=== PATIENT | female | born 1960 | race Caucasian/White ===

== ENCOUNTER 2016-06-05 12:04 | Emergency (ER) | payer OTHER ==
[2016-06-05 12:21] VITALS: BP 125/81; PULSE 78; O2SAT 97
[2016-06-05] MEDS ORDERED: Tylenol #3 Tablet PO ONE (12:34)
[2016-06-05] MEDS ORDERED: Tylenol #3 Tablet ONE (12:38)
--- NOTE | 2016-06-05 12:54 | ERPHSYRPT ---
- History of Present Illness Time Seen by Provider: 06/05/16 12:25 Source: patient Exam Limitations: clinical condition Patient Subjective Stated Complaint: PT STATES THAT SHE FELL TODAY COMPLAINS OF LEFT FOOT. AND ANKLE PAIN STATES SHE HAS INJURED THAT FOOT IN THE PAST STATES SHE CAN'T MOVE HER TOES AT ALL. Triage Nursing Assessment: pt alert warm and dry resp easy non labored good pulses noted to extremity no swelling or brusing noted. Method of Injury: direct blow, fell Occurred: just prior to arrival Quality: constant Severity of Pain-Max: moderate Severity of Pain-Current: moderate Lower Extremities Pain: foot: left, ankle: left Modifying Factors: Improves With: movement Associated Symptoms: unable to bear weight Allergies/Adverse Reactions: bacitracin [From Neosporin ([id number])] Allergy (Verified 03/07/15 11:37) bacitracin zinc [From Neosporin ([id number]-[id number])] Allergy (Verified 03/07/15 11: 37) neomycin sulfate [From Neosporin ([id number])] Allergy (Verified 03/07/15 11: 37) polymyxin B [From Neosporin ([id number])] Allergy (Verified 03/07/15 11:37) povidone-iodine [From Betadine] Allergy (Verified 06/05/16 12:17) soap [From Betadine] Allergy (Verified 06/05/16 12:17) Home Medications: Bupropion HCl 150 mg Sr [Wellbutrin SR 150 MG] 150 mg PO BID 12/13/15 [ History] Trazodone HCl 50 mg [Desyrel 50 mg] 1 tab PO DAILY 01/18/16 [History] Hx Tetanus, Diphtheria Vaccination/Date Given: Yes Hx Influenza Vaccination/Date Given: No Hx Pneumococcal Vaccination/Date Given: No Immunizations Up to Date: Yes - Review of Systems Constitutional: No Fever, No Chills Eyes: No Symptoms Ears, Nose, & Throat: No Symptoms Respiratory: No Cough, No Dyspnea Cardiac: No Chest Pain, No Edema, No Syncope Abdominal/Gastrointestinal: No Abdominal Pain, No Nausea, No Vomiting, No Diarrhea Genitourinary Symptoms: No Dysuria Musculoskeletal: Injury, Joint Pain, Joint Swelling, No Back Pain, No Neck Pain Skin: No Rash Neurological: No Dizziness, No Focal Weakness, No Sensory Changes Psychological: No Symptoms Endocrine: No Symptoms All Other Systems: Reviewed and Negative - Past Medical History Pertinent Past Medical History: Yes Neurological History: Peripheral Neuropathy Psycho-Social History: Depression - Past Surgical History Past Surgical History: Yes Musculoskeletal: Orthopedic Surgery Female Surgical History: Section Other Surgical History: LEFT FOOT-TARSAL TUNNEL - Social History Smoking Status: Former smoker Exposure to second hand smoke: Yes Drug Use: none Patient Lives Alone: No - Female History Hx Last Menstrual Period: MENOPAUSE - Nursing Vital Signs Nursing Vital Signs: Initial Vital Signs Temperature 98.6 F Temperature Source Oral Pulse Rate 78 Respiratory Rate 18 Blood Pressure [] 125/81 - Physical Exam General Appearance: no apparent distress Ankle Exam: left ankle: limited range of motion, pain, soft tissue tenderness ( ANTERIOR MEDIAL TO LATERAL MALLEOLUS, NO JOINT LAXITY, THE PEDIS PULSE 2+), swelling Foot Exam: left foot: soft tissue tenderness (TENDERNESS MID TO DISTAL 2ND TO 4TH METATARSALS WITHOUT SWELLING, ECCHYMOSIS OR CREPITUS), swelling DTR - Lower Extremities Exam: knee (R): 2+, knee (L): 2+, ankle (R): 2+, ankle ( L): 2+ Neuro/Tendon Exam: normal sensation Mental Status Exam: alert, oriented x 3 SpO2 Interpretation: normal SpO2: 97 Oxygen Delivery: Room Air - Radiology Exams Foot X-ray Interpretation: Discussed w/ radiologist (NO EVIDENCE OF FRACTURE OF DISLOCATION.) Ordered Tests: Active Orders 24 hr Category Date Time Status Crutches STAT Care 06/05/16 12:34 Active Splint STAT Care 06/05/16 13:28 Ordered ANKLE (3 VIEWS) Stat Exams 06/05/16 12:54 Completed FOOT (MINIMUM 3 VIEWS) Stat Exams 06/05/16 12:55 Taken Medication Summary Discontinued Medications Generic Name Dose Route Start Last Admin Trade Name Freq PRN Reason Stop Dose Admin Acetaminophen/Codeine Phosphate 2 tab 06/05/16 12:34 06/05/16 12:38 Tylenol #3 Tablet PO 06/05/16 12:35 2 tab STAT ONE Administration Acetaminophen/Codeine Phosphate Confirm 06/05/16 12:38 Tylenol #3 Tablet Administered 06/05/16 12:39 Dose 2 tab .ROUTE .STK-MED ONE - Progress Progress Note: 06/05/16 13:28 PATIENT GIVEN TYLENOL #3, 2 TABLETS ORALLY, VELCRO LEFT ANKLE SPLINT FIITTED FOR LEFT ANKLE. CRUTCHES FITTED FOR PATIENT. Will see patient in: other Counseled pt/family regarding: diagnosis, rad results - Departure Time of Disposition: 13:45 Departure Disposition: Home Clinical Impression: CONTUSION/STRAIN LEFT FOOT AND ANKLE Condition: Stable Critical Care Time: No Additional Instructions: AMBULATE USING CRUTCHES NONWEIGHT BEARING LEFT FOOT FOR 5 DAYS. APPLY ICE OVER FOOT AND ANKLE SWELLING EVERY 4 HOURS, 30 MINUTES FOR 48 HOURS. TYLENOL #3 EVERY 4 HOURS FOR PAIN NEEDED. CONSULT YOUR FAMILY PHYSICIAN FOR FOLLOWUP. Prescriptions: Codeine Phosphate/APAP #3 [Tylenol #3 Tablet] 1 tab PO Q4H PRN PRN #10 tablet PRN Reason: Pain
--- NOTE | 2016-06-05 13:26 | XRAY ---
Exam: 3 view left ankle series from 06/05/2016. Comparison none. Indication: Patient fell today, twisting foot and ankle, complains of pain within lateral aspect of left foot and ankle. Findings: AP, internal oblique, and lateral images of the left ankle were obtained. I see no acute fracture or dislocation. The lateral compartment of the left ankle mortise may be slightly wider than the medial compartment on the AP image, but not to a significant degree. I do not appreciate any significant soft tissue swelling. No anterior left ankle joint effusion is seen. Impression: 1. No acute fracture or dislocation of the left ankle is seen.
--- NOTE | 2016-06-05 13:36 | XRAY ---
Exam: 3 views of the left foot from 06/05/2016. Comparison: 3 views of the left foot from 08/07/2011. Indication: Patient fell today twisting left foot and ankle, complains of pain along lateral aspect of left foot and left ankle. Findings: AP, oblique, and lateral images of the left foot were obtained. There appear to be a couple subtle calcifications adjacent to a bone defect within the proximal dorsal margin of the tarsal navicular bone on the lateral radiograph. Overlying soft tissue swelling is seen dorsal to this. This appearance is most suggestive of minimally displaced cortical avulsion fracture injuries which appear to be acute. I see no other acute fracture or dislocation of the left foot. Impression: 1. A couple minimally displaced cortical avulsion fracture injuries are seen arising from the proximal dorsal margin of the tarsal navicular bone. These are only seen in the lateral image. Some overlying soft tissue swelling is seen as well. 2. No other fracture or dislocation of the left foot is seen.
== END 2016-06-05 14:17 | disposition home or self-care (01) ==
LOC: ED 12:04
DX: S90.32XA Contusion of left foot, initial encounter (principal); S93.402A Sprain of unspecified ligament of left ankle, initial encounter; W01.0XXA Fall on same level from slipping, tripping and stumbling without subsequent striking against object, initial encounter; Z79.899 Other long term (current) drug therapy
CPT/HCPCS: 73610; 73630; 99284; A9270-GY

== ENCOUNTER 2017-04-21 13:02 | Emergency (ER) | payer OTHER ==
[2017-04-21] MEDS ORDERED: TYLENOL 325 MG PO STA (13:27)
--- NOTE | 2017-04-21 13:34 | ERPHSYRPT ---
- History of Present Illness Time Seen by Provider: 04/21/17 13:21 Source: patient, family Patient Subjective Stated Complaint: Pt states "I think I have the flu. I have felt horrible for the past 4 days. I have not been able to control my bladder. " Triage Nursing Assessment: Pt alert and oriented X 3, skin pwd. PT ambulates hunched over, moaning. Pt breathing fast, incontinent of urine. Physician History: CC: flu Hx: 57 y/o patient of Dr Allan Alfred and Dr Osei Arvizu- psychiatry. She has hx of recent swelling, abd bloating. Has not seen her doctor to discuss. Now has 4 day hx of flu symptoms with fever, chills, myalgias, cough, aches. No headache. She has some red spots for a few days on her legs. Swelling worse in right leg when she wears socks but goes down with socks off. No hx of heart, kidney disease nor DM. Severity: moderate Allergies/Adverse Reactions: bacitracin [From Neosporin ([id number])] Allergy (Verified 03/07/15 11:37) bacitracin zinc [From Neosporin ([id number]-[id number])] Allergy (Verified 03/07/15 11: 37) neomycin sulfate [From Neosporin ([id number]-efh-[id number])] Allergy (Verified 03/07/15 11: 37) polymyxin B [From Neosporin ([id number]-xej-egnfs)] Allergy (Verified 03/07/15 11:37) povidone-iodine [From Betadine] Allergy (Verified 06/05/16 12:17) soap [From Betadine] Allergy (Verified 06/05/16 12:17) Home Medications: Bupropion HCl 150 mg Sr [Wellbutrin SR 150 MG] 450 mg PO BID 12/13/15 [ History] Trazodone HCl 50 mg [Desyrel 50 mg] 2 tab PO HS 01/18/16 [History] Alendronate Sodium [Fosamax] 10 mg PO WEEKLY 04/21/17 [History] Alprazolam [Xanax 0.5 mg] 0.5 mg PO DAILY 04/21/17 [History] Gabapentin 300 mg PO HS 04/21/17 [History] Mesalamine [Pentasa] 250 mg PO TID 04/21/17 [History] Hx Tetanus, Diphtheria Vaccination/Date Given: Yes Hx Influenza Vaccination/Date Given: Yes Hx Pneumococcal Vaccination/Date Given: No Immunizations Up to Date: Yes - Review of Systems Constitutional: Fever, Chills, Fatigue, Malaise, Weakness Eyes: No Symptoms Ears, Nose, & Throat: Nose Congestion Respiratory: Cough Cardiac: No Chest Pain Abdominal/Gastrointestinal: Nausea, Diarrhea (at first, now resolved), No Abdominal Pain Genitourinary Symptoms: No Dysuria Musculoskeletal: Myalgias Skin: Rash (red spots on leg) Neurological: No Headache All Other Systems: Reviewed and Negative - Past Medical History Pertinent Past Medical History: Yes Neurological History: Peripheral Neuropathy Psycho-Social History: Depression Other Medical History: ALLERGIES - Past Surgical History Past Surgical History: Yes Musculoskeletal: Orthopedic Surgery Female Surgical History: Section Other Surgical History: LEFT FOOT-TARSAL TUNNEL - Social History Smoking Status: Former smoker Exposure to second hand smoke: Yes Drug Use: none Patient Lives Alone: No - Female History Hx Last Menstrual Period: no more Hx Now: No - Nursing Vital Signs Nursing Vital Signs: Initial Vital Signs Temperature 102.7 F 04/21/17 13:17 Pulse Rate 104 H 04/21/17 13:17 Respiratory Rate 22 04/21/17 13:17 Blood Pressure 141/92 04/21/17 13:17 O2 Sat by Pulse Oximetry 96 04/21/17 13:17 Pain Scale Pain Intensity 4 - Physical Exam General Appearance: alert Eye Exam: PERRL/EOMI Ears, Nose, Throat Exam: normal ENT inspection, dry mucous membranes Neck Exam: normal inspection, non-tender, supple Respiratory Exam: crackles/rales (scattered), No respiratory distress Cardiovascular Exam: regular rate/rhythm, No murmur Gastrointestinal/Abdomen Exam: soft, distention (some bloating), No tenderness Back Exam: normal inspection, No CVA tenderness Extremity Exam: pedal edema (both sides, no calf tenderness, some red spots on legs are macular patches consistent with vasculitis) Neurologic Exam: alert, oriented x 3, cooperative, sensation nml, No motor deficits Skin Exam: warm, dry SpO2 Interpretation: normal SpO2: 96 Oxygen Delivery: Room Air - Course Nursing assessment & vital signs reviewed: Yes EKG Interpreted by Me: RATE (101), Sinus Tach, NORMAL AXIS, NORMAL INTERVALS ( QTc 470), NORMAL QRS, NORMAL ST-T - Radiology Exams cxr X-ray Interpretation: Teleradiologist Report (stable nonacute hyperinflated chest) Ordered Tests: Active Orders 24 hr Category Date Time Status Quarantine Officer STAT Care 04/21/17 13:27 Active Cath for Specimen-Straight STAT Care 04/21/17 13:27 Active EKG-ER Only STAT Care 04/21/17 13:27 Active IV Insertion STAT Care 04/21/17 13:27 Active Oxygen-ED Only NASAL CANNULA 2 lpm Care 04/21/17 14:34 Active Pulse Oximetry (ED) STAT Care 04/21/17 13:27 Active CHEST 1 VIEW (PORTABLE) Stat Exams 04/21/17 13:27 Completed BLOOD CULTURE Stat Lab 04/21/17 13:27 Ordered CBC W DIFF Stat Lab 04/21/17 13:27 Completed CMP Stat Lab 04/21/17 14:07 Completed Lactic Acid Stat Lab 04/21/17 14:10 Completed Lactic Acid Stat Lab 04/21/17 16:15 Completed NT PRO BNP Stat Lab 04/21/17 14:07 Completed TROPONIN Stat Lab 04/21/17 14:07 Completed UA W/ MICROSCOPIC Stat Lab 04/21/17 15:47 Completed Respiratory Nebulizer STAT RT 04/21/17 14:34 Completed Medication Summary Discontinued Medications Generic Name Dose Route Start Last Admin Trade Name Freq PRN Reason Stop Dose Admin Acetaminophen 975 mg 04/21/17 13:27 04/21/17 13:38 Tylenol 325 Mg PO 04/21/17 13:28 975 mg STAT STA Administration Acetaminophen Confirm 04/21/17 13:37 Tylenol 325 Mg Administered 04/21/17 13:38 Dose 975 mg .ROUTE .STK-MED ONE Albuterol/Ipratropium Confirm 04/21/17 14:28 Duoneb 0.5-3 Mg/3 Ml Neb Administered 04/21/17 14:29 Dose 3 ml IH .STK-MED ONE Albuterol/Ipratropium 3 ml 04/21/17 14:34 04/21/17 14:35 Duoneb 0.5-3 Mg/3 Ml Neb IH 04/21/17 14:35 3 ml STAT ONE Administration Lab/Rad Data: Laboratory Result Diagrams 04/21/17 13:27 04/21/17 14:07 Laboratory Results 04/21/17 04/21/17 04/21/17 Range/Units 16:15 15:47 14:10 WBC (4.0-10.5) K/mm3 RBC (4.1-5.4) M/mm3 Hgb (12.0-16.0) gm/dl Hct (35-47) % MCV (78-100) fl MCH (26-32) pg MCHC (32-36) g/dl RDW (11.5-14.0) % Plt Count (150-450) K/mm3 MPV (6-9.5) fl Gran % (36.0-66.0) % Lymphocytes % (24.0-44.0) % Monocytes % (0.0-12.0) % Eosinophils % (0.00-5.0) % Basophils % (0.0-0.4) % Basophils # (0-0.4) Sodium (137-145) mmol/L Potassium (3.5-5.1) mmol/L Chloride (98-107) mEq/L Carbon Dioxide (22-30) mmol/L Anion Gap MEQ/L BUN (7-17) mg/dL Creatinine (0.52-1.04) mg/dl Estimated GFR ML/MIN Glucose (74-106) mg/dL Lactic Acid 1.7 2.1 H (0.4-2.0) Calcium (8.4-10.2) mg/dL Total Bilirubin (0.2-1.3) mg/dL AST (14-36) U/L ALT (0-35) U/L Alkaline Phosphatase (38-126) U/L Troponin I (0.000-0.034) ng/mL NT-Pro-B Natriuret Pep (0-900) pg/mL Serum Total Protein (6.3-8.2) mg/dL Albumin (3.5-5.0) g/dL Ur Collection Type CCMS Urine Color LT.YELLOW (YELLOW) Urine Appearance CLEAR (CLEAR) Urine pH 8.0 (5-6) Ur Specific [place] 1.005 (1.005-1.025) Urine Protein NEGATIVE (Negative) Urine Ketones NEGATIVE (NEGATIVE) Urine Blood TRACE NON-HEM (0-5) Michael/ul Urine Nitrite NEGATIVE (NEGATIVE) Urine Bilirubin NEGATIVE (NEGATIVE) Urine Urobilinogen NORMAL (0-1) mg/dL Ur Leukocyte Esterase NEGATIVE (NEGATIVE) Urine Microscopic RBC 0-2 (0-2) /HPF Urine Culture Reflexed NO (NO) Urine Glucose NEGATIVE (NEGATIVE) mg/dL Influenza Type A Ag (NEGATIVE) Influenza Type B Ag (NEGATIVE) RSV (PCR) (Negative) Specimen Received 04-21-17 1630 04/21/17 04/21/17 04/21/17 Range/Units 14:07 14:07 13:27 WBC 7.6 (4.0-10.5) K/mm3 RBC 4.42 (4.1-5.4) M/mm3 Hgb 13.7 (12.0-16.0) gm/dl Hct 42.0 (35-47) % MCV 95.0 (78-100) fl MCH 31.0 (26-32) pg MCHC 32.6 (32-36) g/dl RDW 13.1 (11.5-14.0) % Plt Count 219 (150-450) K/mm3 MPV 10.5 H (6-9.5) fl Gran % 76.3 H (36.0-66.0) % Lymphocytes % 13.6 L (24.0-44.0) % Monocytes % 8.6 (0.0-12.0) % Eosinophils % 1.2 (0.00-5.0) % Basophils % 0.3 (0.0-0.4) % Basophils # 0.02 (0-0.4) Sodium 141 (137-145) mmol/L Potassium 3.7 (3.5-5.1) mmol/L Chloride 102 (98-107) mEq/L Carbon Dioxide 27 (22-30) mmol/L Anion Gap 15.9 MEQ/L BUN 11 (7-17) mg/dL Creatinine 0.73 (0.52-1.04) mg/dl Estimated GFR > 60 ML/MIN Glucose 108 H (74-106) mg/dL Lactic Acid (0.4-2.0) Calcium 9.6 (8.4-10.2) mg/dL Total Bilirubin 0.60 (0.2-1.3) mg/dL AST 33 (14-36) U/L ALT 29 (0-35) U/L Alkaline Phosphatase 78 (38-126) U/L Troponin I < 0.012 (0.000-0.034) ng/mL NT-Pro-B Natriuret Pep 100 (0-900) pg/mL Serum Total Protein 7.7 (6.3-8.2) mg/dL Albumin 4.5 (3.5-5.0) g/dL Ur Collection Type Urine Color (YELLOW) Urine Appearance (CLEAR) Urine pH (5-6) Ur Specific [place] (1.005-1.025) Urine Protein (Negative) Urine Ketones (NEGATIVE) Urine Blood (0-5) Michael/ul Urine Nitrite (NEGATIVE) Urine Bilirubin (NEGATIVE) Urine Urobilinogen (0-1) mg/dL Ur Leukocyte Esterase (NEGATIVE) Urine Microscopic RBC (0-2) /HPF Urine Culture Reflexed (NO) Urine Glucose (NEGATIVE) mg/dL Influenza Type A Ag NEGATIVE (NEGATIVE) Influenza Type B Ag NEGATIVE (NEGATIVE) RSV (PCR) POSITIVE (Negative) Specimen Received - Progress Progress Note: 04/21/17 17:13 She is feeling better. Fever better. RSV positive and she has flu like syndrome. Will release with cough instr. Advised follow up with Dr Alfred regarding her weight gain and issues with bloating. Counseled pt/family regarding: lab results, diagnosis, need for follow-up, rad results - Departure Time of Disposition: 17:13 Departure Disposition: Home Clinical Impression: Influenza-like syndrome, Cough Condition: Fair Critical Care Time: No Referrals: LUZ ALFRED [Primary Care Provider] - Instructions: Fever, Adult (DC), Cough, Adult (DC), Flu, Adult (DC) Additional Instructions: Rx albuterol MDI. Tylenol every 4-6 hours for fever/discomfort. Drink plenty of fluids. Follow up with Dr Allan Alfred. Prescriptions: Albuterol Sulfate [Albuterol Sulfate Hfa] 2 puff IH Q4-6HPRN PRN #1 [email or web address] PRN Reason: cough or wheeze
[2017-04-21] MEDS ORDERED: TYLENOL 325 MG ONE (13:37)
[2017-04-21 13:49] LABS: BASOPHIL % 0.3 % (0.0-0.4); Basophil (Absolute #) 0.02 (0-0.4); Eosinophil % 1.2 % (0.00-5.0); Eosinophil (Absolute #) 0.09 (0-0.5); Granulocyte Absolute (ANC) 5.79 (1.4-6.9); Granulocytes % 76.3 % (36.0-66.0); Hemoglobin 13.7 gm/dl (12.0-16.0); Lymphocyte (Absolute #) 1.03 (1.0-4.6); Lymphocytes % 13.6 % (24.0-44.0); Mean Corpuscular Hgb Concent. 32.6 g/dl (32-36); Mean Platelet Volume 10.5 fl (6-9.5); Monocyte (Absolute #) 0.65 (0.0-1.3); Monocytes % 8.6 % (0.0-12.0); Platelet Count 219 K/mm3 (150-450); Red Blood Count 4.42 M/mm3 (4.1-5.4); Red Cell Distribution Width 13.1 % (11.5-14.0); White Blood Count 7.6 K/mm3 (4.0-10.5)
[2017-04-21 14:15] LABS: Lactic Acid 2.1 (0.4-2.0)
--- NOTE | 2017-04-21 14:17 | XRAY ---
Indication: Cough and fever. Flu. Comparison: March 07, 2015. Portable chest remains hyperinflated and clear. Heart and mediastinal structures within normal limits. Bony thorax intact. Impression: Stable nonacute hyperinflated chest.
[2017-04-21] MEDS ORDERED: DUONEB 0.5-3 MG/3 ml Neb IH ONE ×2 (14:28→14:34)
[2017-04-21 15:04] LABS: INFLUENZA A NEGATIVE (NEGATIVE); INFLUENZA B NEGATIVE (NEGATIVE)
[2017-04-21 15:05] LABS: RESPIRATORY SYNCTIAL VIRUS POSITIVE (Negative)
[2017-04-21 16:03] LABS: ALBUMIN 4.5 g/dL (3.5-5.0); ALKALINE PHOSPHATASE 78 U/L (38-126); ANION GAP 15.9 MEQ/L; BLOOD UREA NITROGEN 11 mg/dL (7-17); CHLORIDE 102 mEq/L (98-107); Calcium 9.6 mg/dL (8.4-10.2); Carbon Dioxide 27 mmol/L (22-30); Creatinine 1 0.73 mg/dl (0.52-1.04); Glucose 108 mg/dL (74-106); Potassium 3.7 mmol/L (3.5-5.1); SGOT/AST 33 U/L (14-36); SGPT/ALT 29 U/L (0-35); SODIUM 141 mmol/L (137-145); Total Protein 7.7 mg/dL (6.3-8.2)
[2017-04-21 16:15] LABS: NT PRO BNP 100 pg/mL (0-900)
[2017-04-21 16:17] LABS: TROPONIN < 0.012 ng/mL (0.000-0.034)
[2017-04-21 17:02] LABS: Appearance CLEAR (CLEAR); Bilirubin NEGATIVE (NEGATIVE); Blood TRACE NON-HEM Ery/ul (0-5); Glucose NEGATIVE (NEGATIVE); Ketones NEGATIVE (NEGATIVE); Leukocyte Esterase NEGATIVE (NEGATIVE); Nitrite NEGATIVE (NEGATIVE); Protein,Urine Dip NEGATIVE (Negative); Specific Gravity 1.005 (1.005-1.025); Urobilinogen NORMAL mg/dL (0-1)
[2017-04-21] MEDS ORDERED: PROVENTIL 2.5 MG/3 ML NEB IH ONE ×2 (17:16→17:19)
[2017-04-21 17:47] VITALS: BP 132/76; PULSE 88
[2017-04-21 17:59] VITALS: O2SAT 94
== END 2017-04-21 17:50 | disposition home or self-care (01) ==
LOC: ED 13:02
DX: J11.1 Influenza due to unidentified influenza virus with other respiratory manifestations (principal); B97.4 Respiratory syncytial virus as the cause of diseases classified elsewhere; R05 Cough
CPT/HCPCS: 36000; 36415; 51702; 71045; 80053; 81000; 83605; 83880; 84484; 85025; 87040; 87631; 93041; 94640; 99285; A9270-GY

== ENCOUNTER 2018-03-15 12:21 | Emergency (ER) | payer OTHER ==
[2018-03-15] MEDS ORDERED: solu-MEDROL 125 MG IV ONE (12:53)
[2018-03-15] MEDS ORDERED: Sodium Chloride 0.9% 1000 ML 1,000 ML IV STA (12:53)
[2018-03-15] MEDS ORDERED: DUONEB 0.5-3 MG/3 ml Neb IH ONE ×2 (12:53→13:09)
[2018-03-15] MEDS ORDERED: ROCEPHIN 2 Gm-D5w 50ML BAG** 2 G/50 ML IVPB IV STA (12:58)
--- NOTE | 2018-03-15 13:08 | ERPHSYRPT ---
- History of Present Illness Time Seen by Provider: 03/15/18 12:45 Patient Subjective Stated Complaint: seen at clinic yesterday for cough and SOB. was given ATB shot and prednisoe shot.. was given oral atb.. ALSO HAS A BAD TOOTH. Triage Nursing Assessment: ALERT AND HYPERVENTILATING ON ARRIVAL.. STATES HURTS IN HER CHEST WITH BREATHING. COUGHING UP YELLOW DENIES FEVER Physician History: PATIENT WITH A HISTORY OF DEPRESSION COMPLAINS OF DIFFICULTY BREATHING, PAINFUL INSPIRATION, AND PRODUCTIVE COUGH FOR 1 WEEK. TREATED IN WALK IN CLINIC 2 DAYS AGO FOR TOOTHACHE, PLACED ON ANTIBIOTIC AMOXICILLIN 875MG TWICE DAILY FOR 10 DAYS. HAS SHORTNESS OF BREATH, DENIES FEVER OR CHILLS, RADIATION OF PAIN TO NECK, JAW OR ARMS. Activities at Onset: none Quality: sharpness, stabbing Location: substernal Chest Pain Radiation: no radiation Severity of Pain-Max: moderate Severity of Pain-Current: moderate Modifying Factors: Improves With: breathing, coughing Associated Symptoms: shortness of breath, cough Prior Chest Pain/Cardiac Workup: no prior chest pain Nitro Today/Relief: no nitro taken today Aspirin Treatment Today: no aspirin today Allergies/Adverse Reactions: bacitracin [From Neosporin ([id number])] Allergy (Verified 03/15/18 12:54) bacitracin zinc [From Neosporin ([id number])] Allergy (Verified 03/15/18 12: 54) neomycin sulfate [From Neosporin ([id number])] Allergy (Verified 03/15/18 12: 54) polymyxin B [From Neosporin ([id number]-[id number])] Allergy (Verified 03/15/18 12:54) povidone-iodine [From Betadine] Allergy (Verified 03/15/18 12:54) soap [From Betadine] Allergy (Verified 03/15/18 12:54) Home Medications: Bupropion HCl 150 mg Sr [Wellbutrin SR 150 MG] 450 mg PO BID 12/13/15 [ History] Trazodone HCl 50 mg [Desyrel 50 mg] 2 tab PO HS 01/18/16 [History] ALPRAZolam [Xanax 0.5 mg] 0.5 mg PO DAILY 04/21/17 [History] Alendronate Sodium [Fosamax] 10 mg PO WEEKLY 04/21/17 [History] Gabapentin 300 mg PO HS 04/21/17 [History] Mesalamine [Pentasa] 250 mg PO TID 04/21/17 [History] Hx Tetanus, Diphtheria Vaccination/Date Given: Yes Hx Influenza Vaccination/Date Given: Yes Hx Pneumococcal Vaccination/Date Given: No - Review of Systems Constitutional: No Symptoms, No Fever, No Chills Eyes: No Symptoms Ears, Nose, & Throat: No Symptoms Respiratory: Dyspnea on Exertion (CHUNG), No Cough, No Dyspnea Cardiac: No Chest Pain, No Edema, No Syncope Abdominal/Gastrointestinal: No Symptoms, No Abdominal Pain, No Nausea, No Vomiting, No Diarrhea Genitourinary Symptoms: No Symptoms, No Dysuria Musculoskeletal: No Symptoms, No Back Pain, No Neck Pain Skin: No Rash Neurological: No Dizziness, No Focal Weakness, No Sensory Changes Psychological: No Symptoms Endocrine: No Symptoms All Other Systems: Reviewed and Negative - Past Medical History Pertinent Past Medical History: Yes Neurological History: Peripheral Neuropathy Psycho-Social History: Depression Other Medical History: ALLERGIES - Past Surgical History Past Surgical History: Yes Musculoskeletal: Orthopedic Surgery Female Surgical History: Section Other Surgical History: LEFT FOOT-TARSAL TUNNEL - Social History Smoking Status: Former smoker Exposure to second hand smoke: Yes Drug Use: none Patient Lives Alone: No - Female History Hx Now: No - Nursing Vital Signs Nursing Vital Signs: Initial Vital Signs Temperature 98.6 F 03/15/18 12:35 Pulse Rate 84 03/15/18 12:35 Respiratory Rate 30 H 03/15/18 12:35 Blood Pressure 132/78 03/15/18 12:35 O2 Sat by Pulse Oximetry 97 03/15/18 12:35 Pain Scale Pain Intensity 2 - Physical Exam General Appearance: no apparent distress, alert Eye Exam: PERRL/EOMI, eyes nml inspection Ears, Nose, Throat Exam: normal ENT inspection, moist mucous membranes Neck Exam: normal inspection, non-tender, supple, full range of motion Respiratory Exam: diminished breath sounds, wheezing (PROLONGED EXPIRATORY WHEEZES, PARASTERNAL TENDERNESS T-4 TO T-8), No respiratory distress Cardiovascular Exam: regular rate/rhythm, normal heart sounds Gastrointestinal/Abdomen Exam: soft, normal bowel sounds, No tenderness, No mass Back Exam: normal inspection, No CVA tenderness, No vertebral tenderness Extremity Exam: normal inspection, normal range of motion Neurologic Exam: alert, oriented x 3, cooperative, normal mood/affect, sensation nml, No motor deficits Skin Exam: normal color, warm, dry SpO2 Interpretation: normal SpO2: 97 - Course EKG Interpreted by Me: RATE, Sinus Rhythm, NORMAL AXIS - Radiology Exams Chest X-ray Interpretation: Interpreted by me, Negative - CT Exams Chest CT Interpretation: Tele-radiologist Report (NO PULMONARY EMBOLISM, THERE IS PULMONARY EMPHYSEMA) Ordered Tests: Active Orders 24 hr Category Date Time Status Ordained Minister STAT Care 03/15/18 12:54 Active EKG-ER Only STAT Care 03/15/18 12:53 Active IV Insertion STAT Care 03/15/18 12:53 Active CHEST 1 VIEW (PORTABLE) Stat Exams 03/15/18 12:54 Taken CHEST WITH CONTRAST [CT] Stat Exams 03/15/18 13:47 Taken BLOOD CULTURE Stat Lab 03/15/18 13:15 Received BMP Stat Lab 03/15/18 12:53 Completed CBC W DIFF Stat Lab 03/15/18 12:53 Completed D-DIMER QUANTITATION Stat Lab 03/15/18 12:53 Completed Lactic Acid Stat Lab 03/15/18 12:59 Completed MAGNESIUM Stat Lab 03/15/18 12:53 Completed PROTIME WITH INR Stat Lab 03/15/18 12:53 Completed TROPONIN Q3H Lab 03/15/18 13:00 Completed TROPONIN Q3H Lab 03/15/18 16:00 Ordered TROPONIN Q3H Lab 03/15/18 19:00 Ordered TROPONIN Q3H Lab 03/15/18 22:00 Ordered TROPONIN Q3H Lab 03/16/18 01:00 Ordered UA W/RFX UR CULTURE Stat Lab 03/15/18 13:40 Completed Peak Expiratory Flow Rate ONCE RT 03/15/18 12:55 Completed Respiratory Therapy Assessment DAILY RT 03/15/18 13:20 Completed Medication Summary Discontinued Medications Generic Name Dose Route Start Last Admin Trade Name Freq PRN Reason Stop Dose Admin Albuterol/Ipratropium 3 ml 03/15/18 12:53 03/15/18 13:20 Duoneb 0.5-3 Mg/3 Ml Neb IH 03/15/18 12:54 3 ml STAT ONE Administration Albuterol/Ipratropium Confirm 03/15/18 13:09 Duoneb 0.5-3 Mg/3 Ml Neb Administered 03/15/18 13:10 Dose 3 ml IH .STK-MED ONE Sodium Chloride 1,000 mls @ 999 mls/hr 03/15/18 12:53 03/15/18 13:56 Sodium Chloride 0.9% 1000 Ml IV 03/15/18 13:53 999 mls/hr .Q1H1M STA Administration Ceftriaxone Sodium/Dextrose 2 g in 50 mls @ 100 mls/hr 03/15/18 12:58 13:56 Rocephin 2 Gm-D5w 50ml Bag IV 03/15/18 13:27 100 ml/hr STAT STA 100 mls/hr Administration Sodium Chloride Confirm 03/15/18 13:34 Sodium Chloride 0.9% 1000 Ml Administered 03/15/18 13:35 Dose 1,000 mls @ ud .ROUTE .STK-MED ONE Ceftriaxone Sodium/Dextrose Confirm 03/15/18 13:35 Rocephin 2 Gm-D5w 50ml Bag Administered 03/15/18 13:36 Dose 2 g in 50 mls @ ud IV .STK-MED ONE Ketorolac Tromethamine 30 mg 03/15/18 13:26 03/15/18 13:57 Toradol 30 Mg Injection IV 03/15/18 13:27 30 mg STAT ONE Administration Ketorolac Tromethamine Confirm 03/15/18 13:34 Toradol 30 Mg Injection Administered 03/15/18 13:35 Dose 30 mg .ROUTE .STK-MED ONE Methylprednisolone Sodium Succinate 125 mg 03/15/18 12:53 03/15/18 13:56 Solu-Medrol 125 Mg IV 03/15/18 12:54 125 mg STAT ONE Administration Methylprednisolone Sodium Succinate Confirm 03/15/18 13:34 Solu-Medrol 125 Mg Administered 03/15/18 13:35 Dose 125 mg .ROUTE .STK-MED ONE Lab/Rad Data: Laboratory Result Diagrams 03/15/18 12:53 03/15/18 12:53 Laboratory Results 03/15/18 03/15/18 03/15/18 Range/Units 13:40 13:00 13:00 WBC (4.0-10.5) K/mm3 RBC (4.1-5.4) M/mm3 Hgb (12.0-16.0) gm/dl Hct (35-47) % MCV (78-100) fl MCH (26-32) pg MCHC (32-36) g/dl RDW (11.5-14.0) % Plt Count (150-450) K/mm3 MPV (6-9.5) fl Gran % (36.0-66.0) % Eos # (Auto) (0-0.5) Absolute Lymphs (auto) (1.0-4.6) Absolute Monos (auto) (0.0-1.3) Lymphocytes % (24.0-44.0) % Monocytes % (0.0-12.0) % Eosinophils % (0.00-5.0) % Basophils % (0.0-0.4) % Absolute Granulocytes (1.4-6.9) Basophils # (0-0.4) PT (9.95-12.35) SECONDS INR (0.8-3.0) D-Dimer (215-500) ng/mL Sodium (137-145) mmol/L Potassium (3.5-5.1) mmol/L Chloride (98-107) mmol/L Carbon Dioxide (22-30) mmol/L Anion Gap (5-15) MEQ/L BUN (7-17) mg/dL Creatinine (0.52-1.04) mg/dL Estimated GFR ML/MIN Glucose (74-106) mg/dL Lactic Acid (0.4-2.0) Calcium (8.4-10.2) mg/dL Magnesium (1.6-2.3) mg/dL Troponin I (0.000-0.034) ng/mL Urine Color STRAW (YELLOW) Urine Appearance CLEAR (CLEAR) Urine pH 7.0 (5-6) Ur Specific [place] 1.002 (1.005-1.025) Urine Protein NEGATIVE (Negative) Urine Ketones NEGATIVE (NEGATIVE) Urine Blood NEGATIVE (0-5) Michael/ul Urine Nitrite NEGATIVE (NEGATIVE) Urine Bilirubin NEGATIVE (NEGATIVE) Urine Urobilinogen NEGATIVE (0-1) mg/dL Ur Leukocyte Esterase NEGATIVE (NEGATIVE) Urine WBC (Auto) NONE (0-5) /HPF Urine RBC (Auto) NONE SEEN (0-2) /HPF U Epithel Cells (Auto) RARE (FEW) /HPF Urine Bacteria (Auto) NONE SEEN (NEGATIVE) /HPF Urine Mucus (Auto) SLIGHT (NEGATIVE) /HPF Urine Culture Reflexed NO (NO) Urine Glucose NEGATIVE (NEGATIVE) mg/dL Influenza Type A Ag NEGATIVE (NEGATIVE) Influenza Type B Ag NEGATIVE (NEGATIVE) RSV (PCR) NEGATIVE (Negative) Group A Strep Antibody NEGATIVE (NEGATIVE) 03/15/18 03/15/18 03/15/18 Range/Units 13:00 12:59 12:53 WBC (4.0-10.5) K/mm3 RBC (4.1-5.4) M/mm3 Hgb (12.0-16.0) gm/dl Hct (35-47) % MCV (78-100) fl MCH (26-32) pg MCHC (32-36) g/dl RDW (11.5-14.0) % Plt Count (150-450) K/mm3 MPV (6-9.5) fl Gran % (36.0-66.0) % Eos # (Auto) (0-0.5) Absolute Lymphs (auto) (1.0-4.6) Absolute Monos (auto) (0.0-1.3) Lymphocytes % (24.0-44.0) % Monocytes % (0.0-12.0) % Eosinophils % (0.00-5.0) % Basophils % (0.0-0.4) % Absolute Granulocytes (1.4-6.9) Basophils # (0-0.4) PT 13.4 H (9.95-12.35) SECONDS INR 1.15 (0.8-3.0) D-Dimer 679 H* (215-500) ng/mL Sodium (137-145) mmol/L Potassium (3.5-5.1) mmol/L Chloride (98-107) mmol/L Carbon Dioxide (22-30) mmol/L Anion Gap (5-15) MEQ/L BUN (7-17) mg/dL Creatinine (0.52-1.04) mg/dL Estimated GFR ML/MIN Glucose (74-106) mg/dL Lactic Acid 1.4 (0.4-2.0) Calcium (8.4-10.2) mg/dL Magnesium (1.6-2.3) mg/dL Troponin I < 0.012 (0.000-0.034) ng/mL Urine Color (YELLOW) Urine Appearance (CLEAR) Urine pH (5-6) Ur Specific [place] (1.005-1.025) Urine Protein (Negative) Urine Ketones (NEGATIVE) Urine Blood (0-5) Michael/ul Urine Nitrite (NEGATIVE) Urine Bilirubin (NEGATIVE) Urine Urobilinogen (0-1) mg/dL Ur Leukocyte Esterase (NEGATIVE) Urine WBC (Auto) (0-5) /HPF Urine RBC (Auto) (0-2) /HPF U Epithel Cells (Auto) (FEW) /HPF Urine Bacteria (Auto) (NEGATIVE) /HPF Urine Mucus (Auto) (NEGATIVE) /HPF Urine Culture Reflexed (NO) Urine Glucose (NEGATIVE) mg/dL Influenza Type A Ag (NEGATIVE) Influenza Type B Ag (NEGATIVE) RSV (PCR) (Negative) Group A Strep Antibody (NEGATIVE) 03/15/18 03/15/18 Range/Units 12:53 12:53 WBC 10.4 (4.0-10.5) K/mm3 RBC 4.09 L (4.1-5.4) M/mm3 Hgb 13.2 (12.0-16.0) gm/dl Hct 39.0 (35-47) % MCV 95.4 (78-100) fl MCH 32.2 H (26-32) pg MCHC 33.8 (32-36) g/dl RDW 12.4 (11.5-14.0) % Plt Count 354 (150-450) K/mm3 MPV 10.0 H (6-9.5) fl Gran % 85.3 H (36.0-66.0) % Eos # (Auto) 0 (0-0.5) Absolute Lymphs (auto) 1.10 (1.0-4.6) Absolute Monos (auto) 0.43 (0.0-1.3) Lymphocytes % 10.6 L (24.0-44.0) % Monocytes % 4.1 (0.0-12.0) % Eosinophils % 0.0 (0.00-5.0) % Basophils % 0.0 (0.0-0.4) % Absolute Granulocytes 8.84 H (1.4-6.9) Basophils # 0 (0-0.4) PT (9.95-12.35) SECONDS INR (0.8-3.0) D-Dimer (215-500) ng/mL Sodium 141 (137-145) mmol/L Potassium 3.8 (3.5-5.1) mmol/L Chloride 106 (98-107) mmol/L Carbon Dioxide 24 (22-30) mmol/L Anion Gap 15.0 (5-15) MEQ/L BUN 11 (7-17) mg/dL Creatinine 0.70 (0.52-1.04) mg/dL Estimated GFR > 60.0 ML/MIN Glucose 132 H (74-106) mg/dL Lactic Acid (0.4-2.0) Calcium 9.0 (8.4-10.2) mg/dL Magnesium 2.3 (1.6-2.3) mg/dL Troponin I (0.000-0.034) ng/mL Urine Color (YELLOW) Urine Appearance (CLEAR) Urine pH (5-6) Ur Specific [place] (1.005-1.025) Urine Protein (Negative) Urine Ketones (NEGATIVE) Urine Blood (0-5) Michael/ul Urine Nitrite (NEGATIVE) Urine Bilirubin (NEGATIVE) Urine Urobilinogen (0-1) mg/dL Ur Leukocyte Esterase (NEGATIVE) Urine WBC (Auto) (0-5) /HPF Urine RBC (Auto) (0-2) /HPF U Epithel Cells (Auto) (FEW) /HPF Urine Bacteria (Auto) (NEGATIVE) /HPF Urine Mucus (Auto) (NEGATIVE) /HPF Urine Culture Reflexed (NO) Urine Glucose (NEGATIVE) mg/dL Influenza Type A Ag (NEGATIVE) Influenza Type B Ag (NEGATIVE) RSV (PCR) (Negative) Group A Strep Antibody (NEGATIVE) - Progress Progress: improved, re-examined Air Movement: good Progress Note: 03/15/18 13:10 PEAK FLOW, DUO NEB AEROSOL TREATMENT. SOLUMEDROL 125MG IV, TORADOL 20MG IV, AFTER 2 SETS OF BLOOD CULTURES, ROCEPHIN 2 GM IVPB Blood Culture(s) Obtained: Yes Antibiotics given: Yes Counseled pt/family regarding: lab results, diagnosis, need for follow-up, rad results - Departure Time of Disposition: 15:20 Departure Disposition: Home Clinical Impression: ACUTE EXACERBATION OF COPD, PLEURISY Condition: Stable Critical Care Time: No Referrals: LUZ ALFRED [Primary Care Provider] - Additional Instructions: CONTINUE ANTIBIOTIC AMOXICILLIN DIRECTED. PREDNISONE 20MG, 2 TABLETS DAILY FOR 5 DAYS. TORADOL 10 MG EVERY 6 HOURS FOR PAIN. ROBITUSSIN AC COUGH SYRUP WITH CODEINE 5ML EVERY 4 HOURS FOR COUGH. FOLLOWUP WITH YOUR PRIMARY CARE PROVIDER FOR EVALUATION AND OBTAINING YOUR INHALER. RETURN TO EMERGENCY FOR DIFFICULTY BREATHING. Prescriptions: Guaifenesin/Codeine Phosphate [Robitussin AC Syrup] 5 ml PO Q4HPRN PRN #118 ml PRN Reason: Cough Ketorolac Tromethamine [Toradol] 10 mg PO Q6H PRN PRN #20 tablet PRN Reason: Pain Prednisone 20 mg [Deltasone 20 mg] 2 tab PO DAILY #10 tablet
[2018-03-15 13:11] LABS: Basophil (Absolute #) 0 (0-0.4); Eosinophil (Absolute #) 0 (0-0.5); Granulocyte Absolute (ANC) 8.84 (1.4-6.9); Granulocytes % 85.3 % (36.0-66.0); Hemoglobin 13.2 gm/dl (12.0-16.0); Lymphocytes % 10.6 % (24.0-44.0); Mean Cell Volume 95.4 fl (78-100); Mean Corpuscular Hgb Concent. 33.8 g/dl (32-36); Monocyte (Absolute #) 0.43 (0.0-1.3); Monocytes % 4.1 % (0.0-12.0); Platelet Count 354 K/mm3 (150-450); Red Blood Count 4.09 M/mm3 (4.1-5.4); Red Cell Distribution Width 12.4 % (11.5-14.0); White Blood Count 10.4 K/mm3 (4.0-10.5)
[2018-03-15 13:17] LABS: INR 1.15 (0.8-3.0); PROTIME 13.4 SECONDS (9.95-12.35)
[2018-03-15 13:21] LABS: BLOOD UREA NITROGEN 11 mg/dL (7-17); CHLORIDE 106 mmol/L (98-107); Carbon Dioxide 24 mmol/L (22-30); Glucose 132 mg/dL (74-106); MAGNESIUM 2.3 mg/dL (1.6-2.3); Potassium 3.8 mmol/L (3.5-5.1); SODIUM 141 mmol/L (137-145)
[2018-03-15] MEDS ORDERED: TORAdol 30 mg Injection IV ONE (13:26)
[2018-03-15 13:27] LABS: Mean Corpuscular Hemoglobin 32.2 pg (26-32)
[2018-03-15] MEDS ORDERED: solu-MEDROL 125 MG ONE (13:34)
[2018-03-15] MEDS ORDERED: TORAdol 30 mg Injection ONE (13:34)
[2018-03-15] MEDS ORDERED: Sodium Chloride 0.9% 1000 ML 1,000 ML ONE (13:34)
[2018-03-15] MEDS ORDERED: ROCEPHIN 2 Gm-D5w 50ML BAG** 2 G/50 ML IVPB IV ONE (13:35)
[2018-03-15 13:41] LABS: INFLUENZA A NEGATIVE (NEGATIVE); INFLUENZA B NEGATIVE (NEGATIVE); RESPIRATORY SYNCTIAL VIRUS NEGATIVE (Negative)
[2018-03-15 14:04] LABS: Appearance CLEAR (CLEAR); Bilirubin NEGATIVE (NEGATIVE); Blood NEGATIVE Ery/ul (0-5); Epithelial Cells RARE /HPF (FEW); Glucose NEGATIVE (NEGATIVE); Ketones NEGATIVE (NEGATIVE); Leukocyte Esterase NEGATIVE (NEGATIVE); Mucus SLIGHT /HPF (NEGATIVE); Nitrite NEGATIVE (NEGATIVE); Protein,Urine Dip NEGATIVE (Negative); Specific Gravity 1.002 (1.005-1.025); Urobilinogen NEGATIVE mg/dL (0-1)
[2018-03-15 14:05] LABS: Bacteria NONE SEEN /HPF (NEGATIVE); RBC NONE SEEN /HPF (0-2)
[2018-03-15 15:01] VITALS: BP 122/77; PULSE 88
[2018-03-15 15:19] VITALS: O2SAT 97
--- NOTE | 2018-03-15 20:15 | XRAY ---
Indication: Right chest pain. Elevated d-dimer. Multiple contiguous axial images obtained through the chest using 80 cc of Isovue-370 contrast and PE protocol. Comparison: None There is good opacification of the pulmonary arteries to include the lobar and segmental branches. No filling defect or pulmonary embolus. Heart is not enlarged. Aorta is normal in course and caliber without aneurysm/dissection. No pathologic mediastinal/hilar lymphadenopathy. Examination of lung parenchyma demonstrates moderate pulmonary emphysema, moderate bilateral dependent atelectasis, and right base fibrosis/scarring. No suspicious pulmonary mass, infiltrate, or effusion. Bony thorax intact with T8/T12 Schmorl nodes. Limited upper abdomen demonstrates 1 cm right adrenal adenoma. Impression: 1. Negative pulmonary embolus. 2. No acute cardiopulmonary mellitus. 3. Pulmonary emphysema, T8/T12 Schmorl nodes, and small right adrenal adenoma. Comment: Preliminary interpretation was made by [facility]. No critical discrepancy. CTDI 11.66
--- NOTE | 2018-03-15 20:15 | XRAY ---
Indication: Chest pain. Comparison: April 21, 2017. Portable chest remains hyperinflated and clear. Heart is not enlarged. Bony thorax intact. No new/acute findings.
== END 2018-03-15 15:44 | disposition home or self-care (01) ==
LOC: ED 12:21
DX: J44.1 Chronic obstructive pulmonary disease with (acute) exacerbation (principal); R09.1 Pleurisy; R06.02 Shortness of breath; R05 Cough; Z79.899 Other long term (current) drug therapy
CPT/HCPCS: 36000; 36415; 71045; 71260; 80048; 81001; 83605; 83735; 84484; 85025; 85379; 85610; 87040; 87631; 87651; 93005; 93041; 94150; 94640; 96360; 96365; 96374; 96376; 99284; J0696; J1885; J2930; A9270-GY

== ENCOUNTER 2019-06-18 09:50 | Emergency (ER) | payer OTHER ==
[2019-06-18] MEDS ORDERED: DILAUDID 2 MG INJECTION IM STA (10:37)
[2019-06-18] MEDS ORDERED: ZOFRAN ODT 4 MG PO ONE (10:38)
[2019-06-18] MEDS ORDERED: Hydromorphone 1 mg/ml Ampule ONE (11:01)
[2019-06-18] MEDS ORDERED: ZOFRAN ODT 4 MG ONE (11:01)
[2019-06-18 11:36] VITALS: O2SAT 92
--- NOTE | 2019-06-18 11:37 | XRAY ---
Indication: Back pain radiating both legs. Comparison: None. There is MRI lumbar spine March 16, 2019. Multiple contiguous axial images obtained through the lumbar spine. Sagittal and coronal reformatted images obtained. Comparison: None Axial images through the T12-L4 levels are negative for large disc herniation or spinal canal stenosis. T12 superior endplate demonstrates small Schmorl node. L4-S1 disc levels demonstrates broad-based disc bulge without spinal canal stenosis. Facets are symmetric. Sagittal and coronal reformatted images demonstrates normal lumbar alignment with vertebral body heights are maintained. Minimal L4-L5 disc space narrowing. No acute compression fracture or subluxation. Visualized noncontrasted soft tissues demonstrates mild scattered aortoiliac calcifications. Impression: 1. T12 Schmorl node and L4-S1 broad-based disc bulge grossly similar in appearance to comparison MRI lumbar spine. 2. Incidental aortoiliac calcifications. 3. Remaining CT lumbar spine without contrast exam is negative.
--- NOTE | 2019-06-18 11:53 | XRAY ---
Indication: Urinary retention. Two-dimensional sonogram of the urinary bladder performed. Comparison: None Urinary bladder minimally distended with bladder volume 78 cc. No focal bladder mass or wall thickening. Normal left ureteral jet. Right ureteral jet not seen within the allotted exam time. Impression: Minimally distended urinary bladder grossly unremarkable.
--- NOTE | 2019-06-18 12:16 | ERPHSYRPT ---
- History of Present Illness Patient Subjective Stated Complaint: Pt states that she has muscles in her lower back that get tensed up causing pain to go down benito hips and down the leg , pt went to [facility]o Clinic about a month ago and had xrays, pt then went to a neurosurgeon and had injections placed on benito sides, pt followed up with Dr. West and was given muscle relaxers that she states do not help her, pt has now been in pain for about 4 days and when she got up to go to the restroom in the middle of the night the pain became severe, pt denies any injuries to that area Triage Nursing Assessment: Pt brought to the ER by her and was brought to room in a wheelchair, pt unable to ambulate, pt needed full assistance to get into the bed and to change into a gown, vitals wnl, pt states that she has had a back problem for approx 1.5 years, pt states that her back is tender to touch, pulses normal rates pain 10/10, skin n/w/d, pt denies any injuries, pt moaning Physician History: 59-year-old female low back pain had x-rays about a month ago and a CT MRI of the 25 February of she saw neurosurgeon 3 weeks ago and had multiple injections with good give her some transit relief she then saw Dr. West who which did not help her pain is in the low back and radiates down the entire length of the right leg and partially down the left MRI in February of this year showed a tear at L4 and L5 without significant progression or spinal stenosis Timing/Duration: week(s) (Multiple), worse Method of Injury: unknown Quality: burning, sharp Back Pain Location: lumbar spine Back Pain Radiation: buttocks, upper legs (Left), feet (Feet on the right) Severity of Pain-Max: severe Severity of Pain-Current: severe Modifying Factors: Improves With: nothing Associated Symptoms: constipation Previous symptoms: same symptoms as today Allergies/Adverse Reactions: bacitracin [From Neosporin ([id number])] Allergy (Verified 06/18/19 10:21) bacitracin zinc [From Neosporin ([id number])] Allergy (Verified 06/18/19 10: 21) neomycin sulfate [From Neosporin ([id number]-[id number])] Allergy (Verified 06/18/19 10: 21) polymyxin B [From Neosporin ([id number])] Allergy (Verified 06/18/19 10:21) povidone-iodine [From Betadine] Allergy (Verified 06/18/19 10:21) Home Medications: Bupropion HCl 150 mg Sr [Wellbutrin SR 150 MG] 450 mg PO BID 12/13/15 [ History] Trazodone HCl 50 mg [Desyrel 50 mg] 2 tab PO HS 01/18/16 [History] ALPRAZolam [Xanax 0.5 mg] 0.5 mg PO DAILY 04/21/17 [History] Gabapentin 1,600 mg PO HS 04/21/17 [History] Mesalamine [Pentasa] 250 mg PO TID 04/21/17 [History] Metoprolol Tartrate 50 mg [Lopressor 50 MG] 50 mg PO BID 06/18/19 [History ] hydrOXYzine pamoate [Hydroxyzine Pamoate] 50 mg PO TID 06/18/19 [History] Hx Tetanus, Diphtheria Vaccination/Date Given: Yes Hx Influenza Vaccination/Date Given: Yes Hx Pneumococcal Vaccination/Date Given: No Travel Risk - International Travel Have you traveled outside of the country in past 3 weeks: No Have you or anyone close to you been diagnosed with or: No Do your reside in a community with a known COVID-19 case?: Yes If Yes where:: [place] - Coronavirus Screening Has patient experienced Coronavirus symptoms: No - Review of Systems Constitutional: No Fever, No Chills Eyes: No Symptoms Ears, Nose, & Throat: No Symptoms Respiratory: No Cough, No Dyspnea Cardiac: No Chest Pain, No Edema, No Syncope Abdominal/Gastrointestinal: No Abdominal Pain, No Nausea, No Vomiting, No Diarrhea Genitourinary Symptoms: No Dysuria Musculoskeletal: Back Pain, Neck Pain Skin: No Rash Neurological: No Dizziness, No Focal Weakness, No Sensory Changes Psychological: No Symptoms Endocrine: No Symptoms All Other Systems: Reviewed and Negative - Past Medical History Pertinent Past Medical History: Yes Neurological History: Migraines Cardiac History: Arrhythmia, Hypertension Respiratory History: COPD Endocrine Medical History: No Pertinent History Musculoskeletal History: Fractures Psycho-Social History: Depression Other Medical History: L wrist fx, L ankle fx with residual parathesia - Past Surgical History Past Surgical History: Yes Musculoskeletal: Orthopedic Surgery Female Surgical History: Section Other Surgical History: LEFT FOOT-TARSAL TUNNEL - Social History Smoking Status: Former smoker Exposure to second hand smoke: Yes Drug Use: none Patient Lives Alone: No - Nursing Vital Signs Nursing Vital Signs: Initial Vital Signs Temperature 98.1 F 06/18/19 09:56 Pulse Rate 75 06/18/19 09:56 Blood Pressure 110/76 06/18/19 09:56 O2 Sat by Pulse Oximetry 95 06/18/19 09:56 Pain Scale Pain Intensity [Lateral Hip] 10 Pain Intensity 10 - Physical Exam General Appearance: moderate distress, alert Eye Exam: PERRL/EOMI, eyes nml inspection Neck Exam: normal inspection, non-tender, supple, full range of motion, No meningismus, No midline tenderness Respiratory Exam: normal breath sounds, lungs clear, No respiratory distress Cardiovascular Exam: regular rate/rhythm, normal heart sounds Gastrointestinal Exam: soft, No tenderness, No mass Back Exam: vertebral tenderness, decreased range of motion, muscle spasm Extremity Exam: normal inspection, normal range of motion, tenderness, No calf tenderness, No pedal edema Neurologic Exam: alert, oriented x 3, cooperative, labor mediator II-XII nml as tested, normal mood/affect, sensation nml, abnormal gait, No nml station & gait ( Antalgic), No motor deficits Skin Exam: normal color, warm, dry, No rash SpO2 Interpretation: normal SpO2: 92 - Course Nursing assessment & vital signs reviewed: Yes - CT Exams Lumbar Spine CT Interpretation: Other (CT scan essentially unchanged from February of this year) Ordered Tests: Active Orders 24 hr Category Date Time Status BLADDER [US] Stat Exams 06/18/19 11:41 Completed LUMBAR SPINE W/O [CT] Stat Exams 06/18/19 10:42 Completed Medication Summary Discontinued Medications Generic Name Dose Route Start Last Admin Trade Name Freq PRN Reason Stop Dose Admin Hydromorphone HCl 2 mg 06/18/19 10:37 06/18/19 11:03 Dilaudid 2 Mg Injection IM 06/18/19 10:38 2 mg ONCE STA Administration Hydromorphone HCl Confirm 06/18/19 11:01 Hydromorphone 1 Mg/Ml Ampule Administered 06/18/19 11:02 Dose 2 mg .ROUTE .STK-MED ONE Ondansetron HCl 4 mg 06/18/19 10:38 06/18/19 11:02 Zofran Odt 4 Mg PO 06/18/19 10:39 4 mg STAT ONE Administration Ondansetron HCl Confirm 06/18/19 11:01 Zofran Odt 4 Mg Administered 06/18/19 11:02 Dose 4 mg .ROUTE .STK-MED ONE - Progress Progress: improved - Departure Departure Disposition: Home Clinical Impression: Radiculopathy due to lumbar intervertebral disc disorder Condition: Stable Critical Care Time: No Referrals: COLETTE WEST [Primary Care Provider] - Instructions: Low Back Pain (DC), Sciatica (DC) Prescriptions: Hydrocodone/Acetaminophen [[place] 10-325 Tablet] 1 each PO Q6H PRN 3 Days #12 tablet MDD 4 PRN Reason: Moderate Pain
[2019-06-18 12:20] VITALS: BP 113/77; PULSE 71
== END 2019-06-18 12:28 | disposition home or self-care (01) ==
LOC: ED 09:50
DX: M54.16 Radiculopathy, lumbar region (principal)
CPT/HCPCS: 72131; 76705; 96372; 99284; J1170; Q0162

== ENCOUNTER 2019-06-21 16:17 | Emergency (ER) | payer OTHER ==
[2019-06-21] MEDS ORDERED: MORPHINE SULFATE 2 MG INJ IV ONE (17:39)
[2019-06-21] MEDS ORDERED: MORPHINE SULFATE 2 MG INJ ONE (17:44)
--- NOTE | 2019-06-21 17:48 | ERPHSYRPT ---
- History of Present Illness Time Seen by Provider: 06/21/19 16:30 Source: patient Exam Limitations: no limitations Patient Subjective Stated Complaint: "I have low back pain that I first noticed 18 mos ago when riding a riding cream hauler" "im here for back pain today" Triage Nursing Assessment: aaox3, color good, resp easy, arrived via ambulance. c/o persisent low back pain for 18 mos and worse recently. Seen here this past friday for same pain and was given 3 days supply of norco. States norco helps but can tell when pain is wearing off. Denies any new recent injury. Physician History: Patient is a 5-year-old female who presents to our ED with progressive back pain. Patient was in our ED within the past few days. Patient was diagnosed with back pain and treated accordingly. Patient is here because her symptoms have progressively worsened. Patient has a history of low back pain. Patient back pain described as an ache that radiates down her right leg. Pain is moderate to severe in intensity. Movement and palpation worsen symptomology. No associated fever. No recent back procedure. No change in bowel bladder function. No saddle anesthesia. Patient voices no other complaints at this time. Timing/Duration: week(s) (1) Method of Injury: unknown Quality: aching Back Pain Location: lumbar spine, coccyx Back Pain Radiation: lower legs (Rt. LE) Severity of Pain-Max: moderate Severity of Pain-Current: mild Modifying Factors: Improves With: movement Associated Symptoms: denies symptoms Allergies/Adverse Reactions: bacitracin [From Neosporin ([id number])] Allergy (Verified 06/18/19 10:21) bacitracin zinc [From Neosporin ([id number])] Allergy (Verified 06/18/19 10: 21) neomycin sulfate [From Neosporin ([id number]-vyj-gbrov)] Allergy (Verified 06/18/19 10: 21) polymyxin B [From Neosporin ([id number]-[id number])] Allergy (Verified 06/18/19 10:21) povidone-iodine [From Betadine] Allergy (Verified 06/18/19 10:21) Home Medications: Bupropion HCl 150 mg Sr [Wellbutrin SR 150 MG] 450 mg PO BID 12/13/15 [ History] Trazodone HCl 50 mg [Desyrel 50 mg] 2 tab PO HS 01/18/16 [History] ALPRAZolam [Xanax 0.5 mg] 0.5 mg PO DAILY 04/21/17 [History] Gabapentin 1,600 mg PO HS 04/21/17 [History] Mesalamine [Pentasa] 250 mg PO TID 04/21/17 [History] Metoprolol Tartrate 50 mg [Lopressor 50 MG] 50 mg PO BID 06/18/19 [History ] hydrOXYzine pamoate [Hydroxyzine Pamoate] 50 mg PO TID 06/18/19 [History] Hx Tetanus, Diphtheria Vaccination/Date Given: Yes Hx Influenza Vaccination/Date Given: Yes Hx Pneumococcal Vaccination/Date Given: No Travel Risk - International Travel Have you traveled outside of the country in past 3 weeks: No Have you or anyone close to you been diagnosed with or: No Do your reside in a community with a known COVID-19 case?: Yes If Yes where:: [place] - Coronavirus Screening Has patient experienced Coronavirus symptoms: No - Review of Systems Constitutional: No Symptoms, No Fever, No Chills Eyes: No Symptoms Ears, Nose, & Throat: No Symptoms Respiratory: No Symptoms, No Cough, No Dyspnea Cardiac: No Symptoms, No Chest Pain, No Edema, No Syncope Abdominal/Gastrointestinal: No Symptoms, No Abdominal Pain, No Nausea, No Vomiting, No Diarrhea Genitourinary Symptoms: No Symptoms, No Dysuria Musculoskeletal: No Symptoms, No Back Pain, No Neck Pain Skin: No Symptoms, No Rash Neurological: No Symptoms, No Dizziness, No Focal Weakness, No Sensory Changes Psychological: No Symptoms Endocrine: No Symptoms Hematologic/Lymphatic: No Symptoms Immunological/Allergic: No Symptoms All Other Systems: Reviewed and Negative - Past Medical History Pertinent Past Medical History: Yes Neurological History: Migraines Cardiac History: Arrhythmia, Hypertension Respiratory History: COPD Endocrine Medical History: No Pertinent History Musculoskeletal History: Fractures Psycho-Social History: Depression Other Medical History: L wrist fx, L ankle fx with residual parathesia - Past Surgical History Past Surgical History: Yes Musculoskeletal: Orthopedic Surgery Female Surgical History: Section Other Surgical History: LEFT FOOT-TARSAL TUNNEL - Social History Smoking Status: Former smoker Exposure to second hand smoke: Yes Drug Use: none Patient Lives Alone: No - Female History Hx Now: No - Nursing Vital Signs Nursing Vital Signs: Initial Vital Signs Temperature 98.6 F 06/21/19 16:18 Pulse Rate 82 06/21/19 16:18 Respiratory Rate 20 06/21/19 16:18 Blood Pressure 128/95 06/21/19 16:18 O2 Sat by Pulse Oximetry 95 06/21/19 16:18 Pain Scale Pain Intensity 9 - Physical Exam General Appearance: no apparent distress, alert Eye Exam: PERRL/EOMI, eyes nml inspection Neck Exam: normal inspection, non-tender, supple, full range of motion, No meningismus, No midline tenderness Respiratory Exam: normal breath sounds, lungs clear, No respiratory distress Cardiovascular Exam: regular rate/rhythm, normal heart sounds Gastrointestinal Exam: soft, No tenderness, No mass Back Exam: normal inspection, vertebral tenderness, muscle spasm (+SLR, RT. ) Extremity Exam: normal inspection, normal range of motion, No calf tenderness, No pedal edema Neurologic Exam: alert, oriented x 3, cooperative, curtain drier II-XII nml as tested, normal mood/affect, nml station & gait, sensation nml, No motor deficits Skin Exam: normal color, warm, dry, No rash SpO2 Interpretation: normal SpO2: 95 O2 Delivery: Room Air - Course Nursing assessment & vital signs reviewed: Yes - CT Exams Chest CT Interpretation: Tele-radiologist Report (Female emphysema, bilateral atelectasis scattered scarring T8 and T12 Schmorl's nodes, normal aorta) Abdomen/Pelvis CT Interpretation: Tele-radiologist Report (Tiny cul-de-sac free fluid, mild diffuse fecal stasis, mild aortic calcifications without AAA tiny adrenal adenoma remaining abdomen pelvis negative.) Ordered Tests: Active Orders 24 hr Category Date Time Status IV Insertion STAT Care 06/21/19 17:39 Active ABDOMEN AND PELVIS W/0 CONTRAS [CT] Stat Exams 06/21/19 17:43 Taken CHEST WITHOUT CONTRAST [CT] Stat Exams 06/21/19 17:43 Taken CBC W DIFF Stat Lab 06/21/19 18:18 Completed CMP Stat Lab 06/21/19 18:18 Completed Lactic Acid Stat Lab 06/21/19 18:17 Completed UA W/RFX UR CULTURE Stat Lab 06/21/19 20:20 Completed Medication Summary Discontinued Medications Generic Name Dose Route Start Last Admin Trade Name Freq PRN Reason Stop Dose Admin Dexamethasone Sodium Phosphate 6 mg 06/21/19 21:06 Decadron 4 Mg Inj IV 06/21/19 21:07 STAT ONE Ketorolac Tromethamine 30 mg 06/21/19 21:06 Toradol 30 Mg Injection IM 06/21/19 21:07 STAT ONE Morphine Sulfate 2 mg 06/21/19 17:39 06/21/19 17:46 Morphine Sulfate 2 Mg Inj IV 06/21/19 17:40 2 mg STAT ONE Administration Morphine Sulfate Confirm 06/21/19 17:44 Morphine Sulfate 2 Mg Inj Administered 06/21/19 17:45 Dose 2 mg .ROUTE .STK-MED ONE Morphine Sulfate 4 mg 06/21/19 21:06 Morphine Sulfate 4 Mg Inj IV 06/21/19 21:07 STAT ONE Lab/Rad Data: Laboratory Result Diagrams 06/21/19 18:18 06/21/19 18:18 Laboratory Results 06/21/19 06/21/19 06/21/19 Range/Units 20:20 18:18 18:18 WBC 6.4 (4.0-10.5) K/mm3 RBC 3.92 L (4.1-5.4) M/mm3 Hgb 11.9 L (12.0-16.0) gm/dl Hct 37.7 (35-47) % MCV 96.2 (78-100) fl MCH 30.4 (26-32) pg MCHC 31.6 L (32-36) g/dl RDW 13.9 (11.5-14.0) % Plt Count 211 (150-450) K/mm3 MPV 9.6 (7.5-11.0) fl Gran % 54.8 (36.0-66.0) % Eos # (Auto) 0.09 (0-0.5) Absolute Lymphs (auto) 2.26 (1.0-4.6) Absolute Monos (auto) 0.51 (0.0-1.3) Lymphocytes % 35.5 (24.0-44.0) % Monocytes % 8.0 (0.0-12.0) % Eosinophils % 1.4 (0.00-5.0) % Basophils % 0.3 (0.0-0.4) % Absolute Granulocytes 3.49 (1.4-6.9) Basophils # 0.02 (0-0.4) Sodium 140 (137-145) mmol/L Potassium 4.0 (3.5-5.1) mmol/L Chloride 106 (98-107) mmol/L Carbon Dioxide 31 H (22-30) mmol/L Anion Gap 7.8 (5-15) MEQ/L BUN 11 (7-17) mg/dL Creatinine 0.75 (0.52-1.04) mg/dL Estimated GFR > 60.0 ML/MIN Glucose 91 (74-106) mg/dL Lactic Acid (0.4-2.0) Calcium 8.9 (8.4-10.2) mg/dL Total Bilirubin 0.80 (0.2-1.3) mg/dL AST 30 (14-36) U/L ALT 21 (0-35) U/L Alkaline Phosphatase 58 (38-126) U/L Serum Total Protein 6.3 (6.3-8.2) g/dL Albumin 3.6 (3.5-5.0) g/dL Urine Color STRAW (YELLOW) Urine Appearance CLEAR (CLEAR) Urine pH 7.0 (5-6) Ur Specific [place] 1.006 (1.005-1.025) Urine Protein NEGATIVE (Negative) Urine Ketones NEGATIVE (NEGATIVE) Urine Blood NEGATIVE (0-5) Michael/ul Urine Nitrite NEGATIVE (NEGATIVE) Urine Bilirubin NEGATIVE (NEGATIVE) Urine Urobilinogen NEGATIVE (0-1) mg/dL Ur Leukocyte Esterase NEGATIVE (NEGATIVE) Urine WBC (Auto) 0-2 (0-5) /HPF U Epithel Cells (Auto) RARE (FEW) /HPF Urine Mucus (Auto) SLIGHT (NEGATIVE) /HPF Urine Culture Reflexed NO (NO) Urine Glucose NEGATIVE (NEGATIVE) mg/dL 06/21/19 Range/Units 18:17 WBC (4.0-10.5) K/mm3 RBC (4.1-5.4) M/mm3 Hgb (12.0-16.0) gm/dl Hct (35-47) % MCV (78-100) fl MCH (26-32) pg MCHC (32-36) g/dl RDW (11.5-14.0) % Plt Count (150-450) K/mm3 MPV (7.5-11.0) fl Gran % (36.0-66.0) % Eos # (Auto) (0-0.5) Absolute Lymphs (auto) (1.0-4.6) Absolute Monos (auto) (0.0-1.3) Lymphocytes % (24.0-44.0) % Monocytes % (0.0-12.0) % Eosinophils % (0.00-5.0) % Basophils % (0.0-0.4) % Absolute Granulocytes (1.4-6.9) Basophils # (0-0.4) Sodium (137-145) mmol/L Potassium (3.5-5.1) mmol/L Chloride (98-107) mmol/L Carbon Dioxide (22-30) mmol/L Anion Gap (5-15) MEQ/L BUN (7-17) mg/dL Creatinine (0.52-1.04) mg/dL Estimated GFR ML/MIN Glucose (74-106) mg/dL Lactic Acid 1.0 (0.4-2.0) Calcium (8.4-10.2) mg/dL Total Bilirubin (0.2-1.3) mg/dL AST (14-36) U/L ALT (0-35) U/L Alkaline Phosphatase (38-126) U/L Serum Total Protein (6.3-8.2) g/dL Albumin (3.5-5.0) g/dL Urine Color (YELLOW) Urine Appearance (CLEAR) Urine pH (5-6) Ur Specific [place] (1.005-1.025) Urine Protein (Negative) Urine Ketones (NEGATIVE) Urine Blood (0-5) Michael/ul Urine Nitrite (NEGATIVE) Urine Bilirubin (NEGATIVE) Urine Urobilinogen (0-1) mg/dL Ur Leukocyte Esterase (NEGATIVE) Urine WBC (Auto) (0-5) /HPF U Epithel Cells (Auto) (FEW) /HPF Urine Mucus (Auto) (NEGATIVE) /HPF Urine Culture Reflexed (NO) Urine Glucose (NEGATIVE) mg/dL - Progress Progress: improved Progress Note: 06/21/19 21:12 Patient reassessed. She is somewhat uncomfortable. Patient prefers to go home. We will control her pain better and discharge home. Case discussed with Dr. Rodriguez. She will text Dr. Escobar to arrange for an earlier follow-up. Plan of care discussed with patient. Patient agrees with plan of care. Discussed with : Adalberto Will see patient in: other Counseled pt/family regarding: lab results, diagnosis, need for follow-up, rad results - Departure Departure Disposition: Home Clinical Impression: Adrenal adenoma, Back pain Condition: Stable Critical Care Time: No Referrals: COLETTE ESCOBAR [Primary Care Provider] - Additional Instructions: Discharge/Care Plan NIKKO PINON was seen on 06/21/19 in the Emergency Room. The patient was counseled regarding Diagnosis,Lab results, Imaging studies, need for follow up and when to return to the Emergency Room. Prescriptions given: Discharge Note I have spoken with the patient and/or caregivers. I have explained the patient' s condition, diagnosis and treatment plan based on the information available to me at this time. I have answered the patient's and/or caregiver's questions and addressed any concerns. The patient and/or caregivers have as good understanding of the patient's diagnosis, condition and treatment plan as can be expected at this point. The vital signs have been stable. The patient's condition is stable and appropriate for discharge from the emergency department. The patient will pursue further outpatient evaluation with the primary care physician or other designated or consulting physician as outlined in the discharge instructions. The patient and/or caregivers are agreeable to this plan of care and follow-up instructions have been explained in detail. The patient and/or caregivers have received these instruction. The patient/and or caregivers are aware that any significant change in condition or worsening of symptoms should prompt an immediate return to this or the closest emergency department or call 911.
[2019-06-21 18:28] LABS: Absolute Neutrophil Ct (ANC) 3.49 (1.4-6.9); BASOPHIL % 0.3 % (0.0-0.4); Basophil (Absolute #) 0.02 (0-0.4); Eosinophil % 1.4 % (0.00-5.0); Eosinophil (Absolute #) 0.09 (0-0.5); Hematocrit 37.7 % (35-47); Hemoglobin 11.9 gm/dl (12.0-16.0); Lymphocyte (Absolute #) 2.26 (1.0-4.6); Lymphocytes % 35.5 % (24.0-44.0); Mean Cell Volume 96.2 fl (78-100); Mean Corpuscular Hemoglobin 30.4 pg (26-32); Mean Corpuscular Hgb Concent. 31.6 g/dl (32-36); Mean Platelet Volume 9.6 fl (7.5-11.0); Monocyte (Absolute #) 0.51 (0.0-1.3); Neutrophil % 54.8 % (36.0-66.0); Platelet Count 211 K/mm3 (150-450); Red Blood Count 3.92 M/mm3 (4.1-5.4); Red Cell Distribution Width 13.9 % (11.5-14.0); White Blood Count 6.4 K/mm3 (4.0-10.5)
[2019-06-21 18:42] LABS: ALBUMIN 3.6 g/dL (3.5-5.0); ALKALINE PHOSPHATASE 58 U/L (38-126); ANION GAP 7.8 MEQ/L (5-15); BLOOD UREA NITROGEN 11 mg/dL (7-17); CHLORIDE 106 mmol/L (98-107); Calcium 8.9 mg/dL (8.4-10.2); Carbon Dioxide 31 mmol/L (22-30); Creatinine 1 0.75 mg/dL (0.52-1.04); Glucose 91 mg/dL (74-106); SGOT/AST 30 U/L (14-36); SGPT/ALT 21 U/L (0-35); SODIUM 140 mmol/L (137-145); Total Protein 6.3 g/dL (6.3-8.2)
[2019-06-21 20:28] LABS: Appearance CLEAR (CLEAR); Bilirubin NEGATIVE (NEGATIVE); Blood NEGATIVE Ery/ul (0-5); Epithelial Cells RARE /HPF (FEW); Glucose NEGATIVE (NEGATIVE); Ketones NEGATIVE (NEGATIVE); Leukocyte Esterase NEGATIVE (NEGATIVE); Mucus SLIGHT /HPF (NEGATIVE); Nitrite NEGATIVE (NEGATIVE); Protein,Urine Dip NEGATIVE (Negative); Specific Gravity 1.006 (1.005-1.025); Urobilinogen NEGATIVE mg/dL (0-1); WBC 0-2 /HPF (0-5)
[2019-06-21] MEDS ORDERED: TORAdol 30 mg Injection IM ONE (21:06)
[2019-06-21] MEDS ORDERED: Decadron 4 MG INJ IV ONE (21:06)
[2019-06-21] MEDS ORDERED: MORPHINE SULFATE 4 MG INJ IV ONE (21:06)
[2019-06-21] MEDS ORDERED: MORPHINE SULFATE 4 MG INJ ONE (21:20)
[2019-06-21] MEDS ORDERED: TORAdol 30 mg Injection ONE (21:20)
[2019-06-21] MEDS ORDERED: Decadron 4 MG INJ ONE (21:20)
[2019-06-21 22:39] VITALS: BP 120/80; PULSE 74; O2SAT 96
--- NOTE | 2019-06-22 08:18 | XRAY ---
Indication: Low back pain radiating both legs. Rule out dissection. Multiple contiguous axial images obtained through the chest abdomen and pelvis contrast as ordered. Comparison: None. CT chest reported separately. Minimal scattered aortoiliac calcifications without AAA. Lack of IV contrast precludes evaluation for aortic dissection. Noncontrasted stomach and bowel loops appear nonobstructed. Normal appendix. Mild diffuse scattered colonic fecal debris throughout. Bilateral pelvic surgical clips, possible tubal ligation clips. Tiny cul-de-sac free fluid presumed physiologic from rupture/leaking cyst. No free air. 1 cm right adrenal adenoma. Remaining liver, gallbladder, pancreas, spleen, adrenal glands, kidneys, ureters, bladder, and uterus appear unremarkable for noncontrast exam. Osseous structures intact. No ventral or inguinal hernias. Impression: 1. Negative aortic aneurysm. Lack of IV contrast precludes evaluation for aortic dissection. 2. Tiny cul-de-sac free fluid presumed physiologic. 3. Incidental fecal stasis without obstruction and small right adrenal adenoma. 4. Remaining CT abdomen and pelvis without contrast exam is negative.
--- NOTE | 2019-06-22 08:19 | XRAY ---
Indication: Low back pain radiating both legs. Rule out dissection. Multiple contiguous axial images obtained through the chest without contrast as ordered. Comparison: March 15, 2018. Heart is not enlarged. Aorta is normal in course and caliber without aneurysm. Lack of IV contrast precludes evaluation for aortic dissection. No pathologic mediastinal lymphadenopathy. Lungs again demonstrates moderate diffuse pulmonary emphysema, bilateral dependent atelectasis, and bibasilar fibrosis/scarring. No suspicious pulmonary mass, infiltrate, or effusion. Bony thorax intact again with T8/T12 Schmorl nodes. [address] abdomen/pelvis reported separately. Impression: 1. Negative aortic aneurysm. Lack of IV contrast precludes evaluation for aortic dissection. 2. Again incidental pulmonary emphysema, atelectasis, and fibrosis/scarring. 3. Remaining CT chest without contrast exam is negative.
== END 2019-06-21 22:40 | disposition home or self-care (01) ==
LOC: ED 16:17
DX: D35.00 Benign neoplasm of unspecified adrenal gland (principal); M54.5 Low back pain; I10 Essential (primary) hypertension; J44.9 Chronic obstructive pulmonary disease, unspecified; F32.9 Major depressive disorder, single episode, unspecified; Z79.899 Other long term (current) drug therapy
CPT/HCPCS: 36000; 36415; 71250; 74176; 80053; 81001; 83605; 85025; 96374; 96375; 96376; 99284; J1100; J1885; J2270

== ENCOUNTER 2019-09-21 10:49 | Emergency (ER) | payer OTHER ==
[2019-09-21 11:59] LABS: Absolute Neutrophil Ct (ANC) 4.77 (1.4-6.9); BASOPHIL % 0.3 % (0.0-0.4); Basophil (Absolute #) 0.02 (0-0.4); Eosinophil % 1.5 % (0.00-5.0); Eosinophil (Absolute #) 0.12 (0-0.5); Hemoglobin 14.4 gm/dl (12.0-16.0); Lymphocyte (Absolute #) 2.46 (1.0-4.6); Lymphocytes % 31.1 % (24.0-44.0); Mean Cell Volume 93.6 fl (78-100); Mean Corpuscular Hemoglobin 29.9 pg (26-32); Mean Platelet Volume 9.6 fl (7.5-11.0); Monocyte (Absolute #) 0.55 (0.0-1.3); Monocytes % 6.9 % (0.0-12.0); Neutrophil % 60.2 % (36.0-66.0); Platelet Count 251 K/mm3 (150-450); Red Blood Count 4.81 M/mm3 (4.1-5.4); Red Cell Distribution Width 13.6 % (11.5-14.0); White Blood Count 7.9 K/mm3 (4.0-10.5)
[2019-09-21 12:02] LABS: Appearance CLEAR (CLEAR); Bilirubin NEGATIVE (NEGATIVE); Blood NEGATIVE Ery/ul (0-5); Glucose NEGATIVE (NEGATIVE); Ketones NEGATIVE (NEGATIVE); Leukocyte Esterase NEGATIVE (NEGATIVE); Nitrite NEGATIVE (NEGATIVE); Protein,Urine Dip NEGATIVE (Negative); Urobilinogen NEGATIVE mg/dL (0-1)
[2019-09-21 12:17] LABS: Amphetamine,Urine NEGATIVE (NEGATIVE); Barbiturate,Urine NEGATIVE (NEGATIVE); Benzodiazepine,Urine POSITIVE (NEGATIVE); Cocaine,Urine NEGATIVE (NEGATIVE); Methadone,Urine NEGATIVE (NEGATIVE); Opiate,Urine POSITIVE (NEGATIVE); PCP,Urine NEGATIVE (NEGATIVE); THC,Urine POSITIVE (NEGATIVE)
[2019-09-21 12:18] LABS: ALBUMIN 4.5 g/dL (3.5-5.0); ALKALINE PHOSPHATASE 71 U/L (38-126); BLOOD UREA NITROGEN 10 mg/dL (7-17); CHLORIDE 105 mmol/L (98-107); Calcium 9.5 mg/dL (8.4-10.2); Carbon Dioxide 26 mmol/L (22-30); Glucose 116 mg/dL (74-106); Potassium 3.7 mmol/L (3.5-5.1); SGOT/AST 33 U/L (14-36); SGPT/ALT 25 U/L (0-35); SODIUM 140 mmol/L (137-145); Total Protein 7.3 g/dL (6.3-8.2)
--- NOTE | 2019-09-21 12:18 | ERPHSYRPT ---
- History of Present Illness Source: patient Exam Limitations: other (Extremely poor historian who is inconsistent w her hx /symptoms) Patient Subjective Stated Complaint: "STARTED CHEST PAIN, ARM NUMB STARTED GOING DOWN MY LEFT SIDE ALL THE WAY DOWN TO MY TOES. EDER HAD THIS HAPPEN BEFORE REAL BAD BUT NOT LIKE THIS. I FEEL LIKE ITS REALLY HARD TO BREATHE. SHARP PAINS GOING DOWN TO THE MUSCLE AND IT HURTS TO LAY ON THAT SIDE" Triage Nursing Assessment: PT BROUGHT IN BY EMS TRANSFERRED FROM [facility], A/O, PT UPSET AND CRYING, C/O PAIN IN L UPPER LEG, NO OBVIOUS DEFORMITIES NOTED Physician History: 59 yo wf w h/o chronic lumbar pain who sees pain management and receives 120 Norco10 per month/Xanax monthly/Gabapentin monthly presents w lumbar pain radiating down her LLE which is rated 9/10 on scale. She is a very poor historian and also complains of entire body pain/entire L sided weakness/facial droopping/shortness of breath/chest pain. Pt denies N/V/D/fever/cough/dysuria/hematuria/MONIQUE. Timing/Duration: other (2-3 hours/Back pain chronic) Method of Injury: other (No new injury) Quality: radiating, aching Back Pain Location: lumbar spine Back Pain Radiation: upper legs (LLE, but also complains of LUE pain) Severity of Pain-Max: severe Severity of Pain-Current: severe Modifying Factors: Improves With: movement Associated Symptoms: weakness, sensory/motor loss, lower back pain, No fever, No chills, No sweating, No urinary incontinence, No loss of bowel control, No constipation, No nausea, No vomiting, No problems urinating, No light- headedness, No dizziness, No numbness in legs/feet, No tingling in legs/feet, No muscle spasms Previous symptoms: other (h/o chronic back pain) Allergies/Adverse Reactions: bacitracin [From Neosporin ([id number])] Allergy (Verified 09/21/19 11:08) bacitracin zinc [From Neosporin ([id number])] Allergy (Verified 09/21/19 11:08) neomycin sulfate [From Neosporin ([id number])] Allergy (Verified 09/21/19 1 1:08) polymyxin B [From Neosporin ([id number])] Allergy (Verified 09/21/19 11:08) povidone-iodine [From Betadine] Allergy (Verified 09/21/19 11:08) Home Medications: Bupropion HCl 150 mg Sr [Wellbutrin SR 150 MG] 450 mg PO BID 12/13/15 [History] Trazodone HCl 50 mg [Desyrel 50 mg] 2 tab PO HS 01/18/16 [History] ALPRAZolam [Xanax 0.5 mg] 0.5 mg PO DAILY 04/21/17 [History] Gabapentin 1,600 mg PO HS 04/21/17 [History] Mesalamine [Pentasa] 250 mg PO TID 04/21/17 [History] Metoprolol Tartrate 50 mg [Lopressor 50 MG] 50 mg PO BID 06/18/19 [Hist ory] hydrOXYzine pamoate [Hydroxyzine Pamoate] 50 mg PO TID 06/18/19 [History] Hx Tetanus, Diphtheria Vaccination/Date Given: Yes Hx Influenza Vaccination/Date Given: Yes Hx Pneumococcal Vaccination/Date Given: No Immunizations Up to Date: Yes Travel Risk - International Travel Have you traveled outside of the country in past 3 weeks: No - Coronavirus Screening Are you exhibiting any of the following symptoms?: No Close contact with a COVID-19 positive Pt in past 14-21 Days: No - Review of Systems Constitutional: No Symptoms Eyes: No Symptoms Ears, Nose, & Throat: No Symptoms Respiratory: No Symptoms Cardiac: Chest Pain Abdominal/Gastrointestinal: No Symptoms Genitourinary Symptoms: No Symptoms Musculoskeletal: Arthralgias, Back Pain, Joint Pain Skin: No Symptoms Neurological: Parasthesia, No Headache Psychological: No Symptoms Endocrine: No Symptoms Hematologic/Lymphatic: No Symptoms Immunological/Allergic: No Symptoms - Past Medical History Pertinent Past Medical History: Yes Neurological History: Migraines Cardiac History: Arrhythmia, Hypertension Respiratory History: COPD Endocrine Medical History: No Pertinent History Musculoskeletal History: Fractures Psycho-Social History: Depression Other Medical History: L wrist fx, L ankle fx with residual parathesia - Past Surgical History Past Surgical History: Yes Musculoskeletal: Orthopedic Surgery Female Surgical History: Section Other Surgical History: LEFT FOOT-TARSAL TUNNEL. L WRIST - Social History Smoking Status: Former smoker Exposure to second hand smoke: Yes Drug Use: none Patient Lives Alone: No Significant Family History: no pertinent family hx - Nursing Vital Signs Nursing Vital Signs: Initial Vital Signs Temperature 97.9 F 09/21/19 10:50 Pulse Rate 105 H 09/21/19 10:50 Respiratory Rate 18 09/21/19 10:50 Blood Pressure 146/109 09/21/19 10:50 Pain Scale Pain Intensity [] 10 Pain Intensity 6 - Physical Exam General Appearance: no apparent distress, anxiety Eye Exam: PERRL/EOMI, eyes nml inspection Ears, Nose, Throat Exam: normal ENT inspection, TMs normal, pharynx normal Neck Exam: normal inspection, non-tender, No meningismus, No Brudzinski, No Kernig's Respiratory Exam: normal breath sounds, lungs clear, airway intact, No respiratory distress Cardiovascular Exam: regular rate/rhythm, normal heart sounds, normal peripheral pulses Gastrointestinal Exam: soft, normal bowel sounds, No tenderness Pelvic Exam: not done Back Exam: CVA tenderness, point tenderness Extremity Exam: normal inspection (Marked pain w L leg raises) Peripheral Pulses: dorsalis-pedis (R): 2+, dorsalis-pedis (L): 2+ Neurologic Exam: alert, oriented x 3, cooperative, cardiology tech II-XII nml as tested, sensation nml (Pt dysthymic/LUE weakness and LLE weakness which pt states is due to pain) Skin Exam: normal color Lymphatic Exam: adenopathy SpO2 Interpretation: normal SpO2: 94 O2 Delivery: Room Air - Course EKG Interpreted by Me: RATE (NSR/R98/Mildly increased Qtc/QRS wnl) - CT Exams Head CT Interpretation: Discussed w/radiologist (Atrophy/old infarcts/nothing acute) Abdomen/Pelvis CT Interpretation: Discussed w/radiologist (Distended gallbladder wo cholecystitis/Distended bladder/Fecal stasis) Ordered Tests: Active Orders 24 hr Category Date Time Status Nursing Informatics Analyst STAT Care 09/21/19 11:46 Completed EKG-ER Only STAT Care 09/21/19 11:29 Completed IV Insertion STAT Care 09/21/19 11:46 Completed cath [Cath for Specimen-Straight] STAT Care 09/21/19 11:47 Completed ABDOMEN AND PELVIS W/0 CONTRAS [CT] Stat Exams 09/21/19 11:37 Completed HEAD WITHOUT CONTRAST [CT] Stat Exams 09/21/19 11:33 Completed CBC W DIFF Stat Lab 09/21/19 11:50 Completed CMP Stat Lab 09/21/19 11:50 Completed TROPONIN Q3H Lab 09/21/19 11:50 Completed TROPONIN Q3H Lab 09/21/19 14:30 Ordered TROPONIN Q3H Lab 09/21/19 17:30 Ordered TROPONIN Q3H Lab 09/21/19 20:30 Ordered TROPONIN Q3H Lab 09/21/19 23:30 Ordered UA W/RFX UR CULTURE Stat Lab 09/21/19 11:48 Completed Urine Triage Profile Stat Lab 09/21/19 11:48 Completed Medication Summary Discontinued Medications Generic Name Dose Route Start Last Admin Trade Name Freq PRN Reason Stop Dose Admin Ketorolac Tromethamine 30 mg 09/21/19 12:41 09/21/19 12:57 Toradol 30 Mg Injection IV 09/21/19 12:42 30 mg STAT ONE Administration Ketorolac Tromethamine Confirm 09/21/19 12:47 Toradol 30 Mg Injection Administered 09/21/19 12:48 Dose 30 mg .ROUTE .STK-MED ONE Orphenadrine Citrate 60 mg 09/21/19 12:42 09/21/19 13:12 Norflex 60 Mg/2 Ml IM 09/21/19 12:43 60 mg STAT ONE Administration Orphenadrine Citrate Confirm 09/21/19 12:47 Norflex 60 Mg/2 Ml Administered 09/21/19 12:48 Dose 60 mg .ROUTE .STK-MED ONE Lab/Rad Data: Laboratory Result Diagrams 09/21/19 11:50 09/21/19 11:50 Laboratory Results 09/21/19 09/21/19 09/21/19 Range/Units 11:50 11:50 11:50 WBC 7.9 (4.0-10.5) K/mm3 RBC 4.81 (4.1-5.4) M/mm3 Hgb 14.4 (12.0-16.0) gm/dl Hct 45.0 (35-47) % MCV 93.6 (78-100) fl MCH 29.9 (26-32) pg MCHC 32.0 (32-36) g/dl RDW 13.6 (11.5-14.0) % Plt Count 251 (150-450) K/mm3 MPV 9.6 (7.5-11.0) fl Gran % 60.2 (36.0-66.0) % Eos # (Auto) 0.12 (0-0.5) Absolute Lymphs (auto) 2.46 (1.0-4.6) Absolute Monos (auto) 0.55 (0.0-1.3) Lymphocytes % 31.1 (24.0-44.0) % Monocytes % 6.9 (0.0-12.0) % Eosinophils % 1.5 (0.00-5.0) % Basophils % 0.3 (0.0-0.4) % Absolute Granulocytes 4.77 (1.4-6.9) Basophils # 0.02 (0-0.4) Sodium 140 (137-145) mmol/L Potassium 3.7 (3.5-5.1) mmol/L Chloride 105 (98-107) mmol/L Carbon Dioxide 26 (22-30) mmol/L Anion Gap 13.0 (5-15) MEQ/L BUN 10 (7-17) mg/dL Creatinine 0.90 (0.52-1.04) mg/dL Estimated GFR > 60.0 ML/MIN Glucose 116 H (74-106) mg/dL Calcium 9.5 (8.4-10.2) mg/dL Total Bilirubin 0.60 (0.2-1.3) mg/dL AST 33 (14-36) U/L ALT 25 (0-35) U/L Alkaline Phosphatase 71 (38-126) U/L Troponin I < 0.012 (0.000-0.034) ng/mL Serum Total Protein 7.3 (6.3-8.2) g/dL Albumin 4.5 (3.5-5.0) g/dL Urine Color (YELLOW) Urine Appearance (CLEAR) Urine pH (5-6) Ur Specific [place] (1.005-1.025) Urine Protein (Negative) Urine Ketones (NEGATIVE) Urine Blood (0-5) Michael/ul Urine Nitrite (NEGATIVE) Urine Bilirubin (NEGATIVE) Urine Urobilinogen (0-1) mg/dL Ur Leukocyte Esterase (NEGATIVE) Urine WBC (Auto) (0-5) /HPF Urine RBC (Auto) (0-2) /HPF U Epithel Cells (Auto) (FEW) /HPF Urine Bacteria (Auto) (NEGATIVE) /HPF Urine Culture Reflexed (NO) Urine Glucose (NEGATIVE) mg/dL Urine Opiates Level (NEGATIVE) Ur Methadone (NEGATIVE) Urine Barbiturates (NEGATIVE) Ur Phencyclidine (PCP) (NEGATIVE) Urine Amphetamine (NEGATIVE) U Benzodiazepine Level (NEGATIVE) Urine Cocaine (NEGATIVE) Urine Marijuana (THC) (NEGATIVE) 09/21/19 09/21/19 Range/Units 11:48 11:48 WBC (4.0-10.5) K/mm3 RBC (4.1-5.4) M/mm3 Hgb (12.0-16.0) gm/dl Hct (35-47) % MCV (78-100) fl MCH (26-32) pg MCHC (32-36) g/dl RDW (11.5-14.0) % Plt Count (150-450) K/mm3 MPV (7.5-11.0) fl Gran % (36.0-66.0) % Eos # (Auto) (0-0.5) Absolute Lymphs (auto) (1.0-4.6) Absolute Monos (auto) (0.0-1.3) Lymphocytes % (24.0-44.0) % Monocytes % (0.0-12.0) % Eosinophils % (0.00-5.0) % Basophils % (0.0-0.4) % Absolute Granulocytes (1.4-6.9) Basophils # (0-0.4) Sodium (137-145) mmol/L Potassium (3.5-5.1) mmol/L Chloride (98-107) mmol/L Carbon Dioxide (22-30) mmol/L Anion Gap (5-15) MEQ/L BUN (7-17) mg/dL Creatinine (0.52-1.04) mg/dL Estimated GFR ML/MIN Glucose (74-106) mg/dL Calcium (8.4-10.2) mg/dL Total Bilirubin (0.2-1.3) mg/dL AST (14-36) U/L ALT (0-35) U/L Alkaline Phosphatase (38-126) U/L Troponin I (0.000-0.034) ng/mL Serum Total Protein (6.3-8.2) g/dL Albumin (3.5-5.0) g/dL Urine Color STRAW (YELLOW) Urine Appearance CLEAR (CLEAR) Urine pH 6.0 (5-6) Ur Specific [place] 1.010 (1.005-1.025) Urine Protein NEGATIVE (Negative) Urine Ketones NEGATIVE (NEGATIVE) Urine Blood NEGATIVE (0-5) Michael/ul Urine Nitrite NEGATIVE (NEGATIVE) Urine Bilirubin NEGATIVE (NEGATIVE) Urine Urobilinogen NEGATIVE (0-1) mg/dL Ur Leukocyte Esterase NEGATIVE (NEGATIVE) Urine WBC (Auto) NONE (0-5) /HPF Urine RBC (Auto) NONE (0-2) /HPF U Epithel Cells (Auto) NONE (FEW) /HPF Urine Bacteria (Auto) NONE (NEGATIVE) /HPF Urine Culture Reflexed NO (NO) Urine Glucose NEGATIVE (NEGATIVE) mg/dL Urine Opiates Level POSITIVE (NEGATIVE) Ur Methadone NEGATIVE (NEGATIVE) Urine Barbiturates NEGATIVE (NEGATIVE) Ur Phencyclidine (PCP) NEGATIVE (NEGATIVE) Urine Amphetamine NEGATIVE (NEGATIVE) U Benzodiazepine Level POSITIVE (NEGATIVE) Urine Cocaine NEGATIVE (NEGATIVE) Urine Marijuana (THC) POSITIVE (NEGATIVE) - Progress Progress Note: 09/21/19 12:44 60mg IM Norflex/30mg IV toradol Counseled pt/family regarding: lab results, diagnosis, need for follow-up, rad results - Departure Departure Disposition: Home Clinical Impression: Back pain, Neurogenic bladder, Sciatica, Constipation due to pain medication Condition: Stable Critical Care Time: No Referrals: COLETTE ESCOBAR [Primary Care Provider] - Instructions: Constipation, Adult (DC), Low Back Pain (DC), Sciatica (DC) Additional Instructions: Follow up with your pain physician in next 1-2 days Return to ER for increasing pain/Focal weakness/Temperature greater than 100.5 Continue current pain meds
--- NOTE | 2019-09-21 12:33 | XRAY ---
Indication: Numbness. Multiple contiguous axial images obtained through the head without contrast. Comparison: None Age-appropriate global atrophy and minimal degenerative micro-ischemia bilaterally. Remote appearing 7-8 mm infarct left insula and tiny lacunar infarct right external capsule. No acute intracranial hemorrhage, abnormal extra-axial fluid question, or mass effect. Fourth ventricle is midline without hydrocephalus. Dawkins-white matter differentiation preserved. Bony calvarium intact. Visualized paranasal sinuses and mastoid air cells are clear. Impression: 1. 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 2. Atrophy and degenerative micro-ischemia within normal limits for patient's age. 3. No acute intracranial abnormalities.
--- NOTE | 2019-09-21 12:37 | XRAY ---
Indication: Left flank pain. Multiple contiguous axial images obtained through the abdomen and pelvis without contrast as ordered. Comparison: June 21, 2019. Lung bases again demonstrates bibasilar atelectasis/scarring, more than before. No infiltrate or effusion. Heart is not enlarged. Noncontrasted stomach and bowel loops appear nonobstructed normal appendix. There is again mild/moderate diffuse scattered colonic fecal debris throughout, more than before. No free fluid/air. Urinary bladder is now massively distended concerning for obstruction versus neurogenic bladder. Stable bilateral pelvic surgical clips and small right adrenal adenoma. Gallbladder moderately distended without gallstones or biliary distention. Remaining liver, gallbladder, pancreas, spleen, adrenal glands, kidneys, ureters, bladder, and uterus appear unremarkable for noncontrast exam. Stable mild aortoiliac calcifications without AAA. Osseous structures intact. Impression: 1. New massively distended urinary bladder. Rule out outlet obstruction versus neurogenic bladder. 2. Worsening diffuse fecal stasis. 3. Distended gallbladder without gallstones or biliary distention. 4. Stable tiny right adrenal adenoma
[2019-09-21] MEDS ORDERED: Norflex 60 MG/2 ML ONE (12:47)
[2019-09-21] MEDS ORDERED: TORAdol 30 mg Injection ONE (12:47)
[2019-09-21] MEDS: TORAdol 30 mg Injection IV ONE (12:57)
[2019-09-21] MEDS: Norflex 60 MG/2 ML IM ONE (13:12)
[2019-09-21 13:16] VITALS: BP 123/92; PULSE 92
[2019-09-21 13:45] VITALS: O2SAT 94
== END 2019-09-21 13:40 | disposition home or self-care (01) ==
LOC: ED 10:49
DX: M54.5 Low back pain (principal); N31.9 Neuromuscular dysfunction of bladder, unspecified; M54.30 Sciatica, unspecified side; K59.03 Drug induced constipation
CPT/HCPCS: 36000; 36415; 70450; 74176; 80053; 80307; 81001; 84484; 85025; 93005; 93041; 96372; 96374; 99284; P9612; J1885; J2360